=== PATIENT | male | born 1995 | race Caucasian/White ===

== ENCOUNTER → 2016-07-25 | Emergency (ER) | payer SELFPAY ==
[~2016-07-25] MED LIST: KETOROLAC TROMETHAMINE 30 MG/1 ML VIAL ONE; METOCLOPRAMIDE HCL INJECTION 10 MG/2 ML VIAL IVPB ONE; METOCLOPRAMIDE HCL INJECTION 10 MG/2 ML VIAL ONE; ONDANSETRON 4 MG/2 ML VIAL ONE; PANTOPRAZOLE SODIUM 200 ML IVPB ONE; PANTOPRAZOLE SODIUM 80 MG in SODIUM CHLORIDE 100 ML IVPB ONE; SODIUM CHLORIDE 0.9% 500 ML INFUS.BAG IV ONE
[2016-07-25 19:35] VITALS: TEMP 98; BMI 25.7
--- NOTE | 2016-07-25 20:00 | PDOC ---
History of Present Illness - History of Present Illness Initial Comments: 07/25/16 20:39 The patient is a year 20 year old male, with a significant past medical history of gastritis, who presents to the emergency department with abdominal pain, nausea, and vomiting for 3 days. He reports his abdominal pain is localized to the midsection with radiation to his epigastric region. He reports he has been unable to lay comfortable secondary to his pain. He reports numerous episodes of non-bloody emesis since the onset of symptoms. The patient states he has been feeling chills, but denies taking his temperature. He states he also feels sweaty. He states he has a history of gastritis secondary to skipping meals frequently for about a year. He reports a similar experience about 4 months ago and was seen at [facility], but denies being referred for GI outpatient care. He denies recent travel outside of the [facility]. He denies recent ingestion of river, stream or lord water. He denies contacts with similar symptoms. He denies blood or mucous noted in the stools. He denies chest pain, shortness of breath, headache and dizziness. He denies fever, diarrhea and constipation. He denies dysuria, frequency, urgency and hematuria. Allergies: NKDA Past surgical history: denies Family History: Gallstones (mother) Social history: denies toxic habits <Jessica Soto - Last Filed: 07/25/16 22:53> <Kandi Martinez - Last Filed: 07/25/16 23:55> - General Chief Complaint: Nausea/Vomiting Stated Complaint: NAUSEA/VOMITING Time Seen by Provider: 07/25/16 19:58 Past History <Jessica Soto - Last Filed: 07/25/16 22:53> - Past Medical History Other medical history: gastritis - Immunization History Immunization Up to Date: No - Psycho/Social/Smoking Cessation Hx Suicidal Ideation: No Smoking History: Never smoked <Kandi Martinez - Last Filed: 07/25/16 23:55> - Past Medical History Allergies/Adverse Reactions: Allergies Allergy/AdvReac Type Severity Reaction Status Date / Time No Known Allergies Allergy Verified 07/25/16 19:33 Home Medications: Ambulatory Orders NK [No Known Home Medication] 07/25/16 Review of Systems - Review of Systems Able to Perform ROS?: Yes Comments:: 07/25/16 20:39 GENERAL/CONSTITUTIONAL: (+) chills and diaphoresis. No fever. No weakness. HEAD, EYES, EARS, NOSE AND THROAT: No change in vision. No ear pain or discharge. No sore throat. CARDIOVASCULAR: No chest pain or shortness of breath. RESPIRATORY: No cough, wheezing, or hemoptysis. GASTROINTESTINAL: (+) nausea and vomiting, No diarrhea or constipation. GENITOURINARY: No dysuria, frequency, or change in urination. MUSCULOSKELETAL: No joint or muscle swelling or pain. No neck or back pain. SKIN: No rash NEUROLOGIC: No headache, vertigo, loss of consciousness, or change in strength/ sensation. ENDOCRINE: No increased thirst. No abnormal weight change. HEMATOLOGIC/LYMPHATIC: No anemia, easy bleeding, or history of blood clots. ALLERGIC/IMMUNOLOGIC: No hives or skin allergy. <Jessica Soto - Last Filed: 07/25/16 22:53> *Physical Exam - Vital Signs Last Vital Signs Temp Pulse Resp BP Pulse Ox 98 F 56 L 20 136/79 100 07/25/16 19:33 07/25/16 19:33 07/25/16 19:33 07/25/16 19:33 07/25/16 19:33 - Physical Exam Comments: 07/25/16 20:41 GENERAL: (+) uncomfortable appearing. Awake, alert, and fully oriented, in no acute distress HEAD: No signs of trauma EYES: PERRLA, EOMI, sclera anicteric, conjunctiva clear ENT: Auricles normal inspection, hearing grossly normal, nares patent, oropharynx clear without exudates. Moist mucosa NECK: Normal ROM, supple, no lymphadenopathy, JVD, or masses LUNGS: Breath sounds equal, clear to auscultation bilaterally. No wheezes, and no crackles HEART: Regular rate and rhythm, normal S1 and S2, no murmurs, rubs or gallops ABDOMEN: (+) mild discomfort with palpation of the right upper quadrant. Soft, normoactive bowel sounds. No guarding, no rebound. No masses EXTREMITIES: Normal range of motion, no edema. No clubbing or cyanosis. No cords, erythema, or tenderness NEUROLOGICAL: Cranial nerves II through XII grossly intact. Normal speech, normal gait SKIN: (+) Diaphoretic. Warm, normal turgor, no rashes or lesions noted. <ArielacanJessica - Last Filed: 07/25/16 22:53> - Vital Signs Last Vital Signs Temp Pulse Resp BP Pulse Ox 98 F 56 L 20 136/79 100 07/25/16 19:33 07/25/16 19:33 07/25/16 19:33 07/25/16 19:33 07/25/16 19:33 <Kandi Martinez - Last Filed: 07/25/16 23:55> ED Treatment Course - LABORATORY CBC & Chemistry Diagram: 07/25/16 20:52 07/25/16 20:52 - RADIOLOGY Radiograph Interpretation: 07/25/16 22:53 EXAM DATE AND TIME: 2016-07-25 21:35:50.0 EXAM: ULTRASOUND ABDOMEN INCOMPLETE was read by Marianne Gonzalez M.D. at 22:48 IMPRESSION: Unremarkable gallbladder, liver, right kidney and visualized aorta and pancreas. No biliary dilatation. <ArielaAni northanda - Last Filed: 07/25/16 22:53> - LABORATORY CBC & Chemistry Diagram: 07/25/16 20:52 07/25/16 20:52 <MartinezKandi - Last Filed: 07/25/16 23:55> Medical Decision Making - Medical Decision Making 07/25/16 21:19 Pt comes with epigastric pain; writhing around. However on exam he has no tenderness with palpation in all 4 quadrants, however her points to the Epigastric and RUQ as areas of pain. He and his girlfriend tell me that he has gastritis on a regular basis, but he has no specialist. He had a similar episode to this 4 months ago, and he didn't come to our ER. Went to [facility] in another [facility]. When I asked them what they told him after that admission, he replies,"They told me nothing" which I find hard to believe. Pt will be re worked up today. I will not offer him narcotic pain meds, as his exam is normal, and his HR is bradycardic/normal, and he has no fever. He is diaphoretic however, and he tells me that he has had nausea and vomiting x 3 day. When I ask him why he waited 3 days to come to the ER, he offers no explanation. Pt smokes weed, girlfriend tells me that it helps him with his epigastric pain.. 07/25/16 22:55 Patient Name: Jaime Aldana THIS IS A PRELIMINARY REPORT FROM IMAGING CLINIC ASSISTANT IMAGES: 47 EXAM DATE AND TIME: 2016-07-25 21:35:50.0 EXAM: ULTRASOUND ABDOMEN INCOMPLETE Unremarkable gallbladder, liver, right kidney and visualized aorta and pancreas. No biliary dilatation. THIS DOCUMENT HAS BEEN ELECTRONICALLY SIGNED 07/25/16 23:53 Pt has a normal ultrasound. He walked out after pulling out his IV; pt realized that I would not give him narcotics and he eloped. <Kandi Martinez - Last Filed: 07/25/16 23:55> *DC/Admit/Observation/Transfer - Attestations Scribe Attestion: 07/25/16 20:43 Documentation prepared by Jessica Soto, acting as medical i d sales for Kandi Martinez MD <Jessica Soto - Last Filed: 07/25/16 22:53> <Kandi Martinez - Last Filed: 07/25/16 23:55> Diagnosis at time of Disposition: Lower abdominal pain, unspecified, Upper abdominal pain, unspecified, Hyperbilirubinemia - Discharge Dispostion Disposition: ELOPED Condition at time of disposition: Stable
[2016-07-25 21:03] LABS: BASOPHIL 0.2 % (0-2.0); MCH 31.9 pg (25.7-33.7); MCHC 33.4 g/dl (32.0-35.9); MEAN CELL VOLUME 95.4 fl (80-96); NEUTROPHILS 82.8 % (42.8-82.8); PLATELET COUNT 210 K/MM3 (134-434); RDW 12.7 % (11.9-15.9); WHITE BLOOD COUNT 8.2 K/mm3 (4.0-10.0)
[2016-07-25 21:32] LABS: ALBUMIN 5.2 g/dl (3.4-5.0); AMYLASE 23 U/L (25-115); ANION GAP 11 (8-16); BILIRUBIN,TOTAL 1.4 mg/dL (0.2-1.0); CALCIUM 9.7 mg/dL (8.5-10.1); CO2 25 mmol/L (21-32); CREATININE 1.1 mg/dL (0.7-1.3); GLUCOSE,RANDOM 142 mg/dL (74-106); SGOT/AST 16 U/L (15-37); SGPT/ALT 20 U/L (12-78); TOT PROT 8.4 g/dl (6.4-8.2)
[2016-07-25 21:33] LABS: ALK PHOS 85 U/L (45-117)
[2016-07-25 22:47] LABS: URINE APPEARANCE CLEAR; URINE BILIRUBIN NEGATIVE (NEGATIVE); URINE BLOOD NEGATIVE (NEGATIVE); URINE COLOR STRAW; URINE GLUCOSE (UA) NEGATIVE (NEGATIVE); URINE KETONE 2+ (NEGATIVE); URINE LEUK ESTERASE NEGATIVE (NEGATIVE); URINE NITRITE NEGATIVE (NEGATIVE); URINE PROTEIN NEGATIVE (NEGATIVE); URINE UROBILINOGEN NEGATIVE E.U./dl (0.2-1.0)
[2016-07-25 22:57] LABS: URINE MARIJUANA THC POSITIVE ng/ml (CUTOFF=50)
[2016-07-26 00:57] VITALS: BP 125/68; PULSE 58
--- NOTE | 2016-07-26 10:17 | EKG ---
Test Reason : Blood Pressure : / mmHG Vent. Rate : 058 BPM Atrial Rate : 058 BPM P-R Int : 136 ms QRS Dur : 090 ms QT Int : 458 ms P-R-T Axes : 062 071 062 degrees QTc Int : 449 ms POOR DATA QUALITY, INTERPRETATION MAY BE ADVERSELY AFFECTED SINUS BRADYCARDIA WITH PREMATURE ATRIAL COMPLEXES OTHERWISE NORMAL ECG NO PREVIOUS ECGS AVAILABLE Confirmed by LUISITO CARSON MD ([id number]) on 07/26/2016 10:17:11 AM Referred By: Confirmed By:LUISITO CARSON MD
== END | disposition left against medical advice (07) ==
LOC: JER 19:28
PROC: 3E033GC Introduction of Other Therapeutic Substance into Peripheral Vein, Percutaneous Approach (ICD-10-PCS; principal; 2016-07-25)
DX: R10.13 Epigastric pain (principal); E80.6 Other disorders of bilirubin metabolism
CPT/HCPCS: 36415; 76705-TC; 80053; 80307; 81003; 82150; 83690; 85025; 93005; 93010; 99283-25

== ENCOUNTER 2016-10-09 18:34 | Observation (INO) | payer MEDICARE ==
[2016-10-09] MEDS ORDERED: morphine CARPU-JECT 4 MG/1 ML DISP.SYRIN IVPUSH ONE (19:13)
[2016-10-09] MEDS ORDERED: SODIUM CHLORIDE 1,000 ML IV STA (19:13)
[2016-10-09] MEDS ORDERED: ONDANSETRON 4 MG/2 ML VIAL IVPUSH ONE (19:13)
[2016-10-09] MEDS ORDERED: morphine CARPU-JECT 4 MG/1 ML DISP.SYRIN ONE (19:17)
[2016-10-09] MEDS ORDERED: ONDANSETRON 4 MG/2 ML VIAL ONE ×2 (19:18→19:42)
--- NOTE | 2016-10-09 19:35 | PDOC ---
History of Present Illness - General Chief Complaint: Pain Stated Complaint: ABD PAIN Time Seen by Provider: 10/09/16 19:08 History Source: Patient Exam Limitations: No Limitations - History of Present Illness Initial Comments: 10/09/16 19:36 CC: 3 week h/o of abdominal pain Patient is a 20 y.o. male with a PMH of multiple visits for abdominal pain ( with associated N/V) who presents to our facility today c/o of a 3 week h/o "sharp" and "stabbing" non-radiating diffuse abdominal pain 01/04 with 2-3 daily episodes of non-bloody, bilious vomiting. Patient was most recently evaluated at our facility on 06/2016 for similar complaints at which time an ultrasound was negative for any acute pathology. Patient's girlfriend @ bedside also notes that patient has had 2-3 episodes of vomiting today with bright red blood and she has noticed such blood in his vomit on prior occasion and further notes that this episodes occurred after food. Patient denies any associated chest pain, shortness of breath, diarrhea or constipation. 10/10/16 01:14 Timing/Duration: other (2-3 weeks) Severity: moderate Associated Symptoms: reports: nausea/vomiting Aspirin Received prior to arrival: Yes: no aspirin today Past History - Past Medical History Allergies/Adverse Reactions: Allergies Allergy/AdvReac Type Severity Reaction Status Date / Time No Known Allergies Allergy Verified 10/09/16 18:38 Home Medications: Ambulatory Orders NK [No Known Home Medication] 07/25/16 GI Disorders: Yes (GASTRITIS.) - Immunization History Immunization Up to Date: No - Psycho/Social/Smoking Cessation Hx Anxiety: No Suicidal Ideation: No Smoking History: Never smoked Hx Alcohol Use: No Drug/Substance Use Hx: Yes (marijuana.) Substance Use Type: Marijuana Review of Systems - Review of Systems Constitutional: Yes: Fever HEENTM: Yes: Other (No blurry vision, hearing loss, tinnitus or sore throat.) Respiratory: Yes: Cough, Hemoptysis (2-3 episodes of hemomtysis (bright red blood) today), Other (No shortness of breath at rest/with exertion) Cardiac (ROS): Yes: Other (No chest pain, palpitation, syncope or lightheadedness) ABD/GI: Yes: Nausea, Poor Appetite, Poor Fluid Intake, Vomiting, Abdominal cramping, Other (No diarrhea, constipation, bloody stools) Musculoskeletal: Yes: Other (No muscle pain, joint pain, muscle weakness) Integumentary: Yes: Other (No erythema, bruising, pallor, pruritus, rash ) Neurological: Yes: Other (No headaches, no numbness, no seizure, no tingling) Psychiatric: Yes: Other (No anxiety, depression, suicidal or homicidal ideation) All Other Systems: Reviewed and Negative *Physical Exam - Vital Signs Last Vital Signs Temp Pulse Resp BP Pulse Ox 99.9 F H 70 22 130/69 99 10/09/16 18:39 10/09/16 18:39 10/09/16 18:39 10/09/16 18:39 10/09/16 18:39 - Physical Exam General Appearance: Yes: Nourished, Appropriately Dressed HEENT: positive: EOMI, Other (B/L delayed puppilary repsonse) Neck: positive: Trachea midline, Supple Respiratory/Chest: positive: Lungs Clear, Normal Breath Sounds Cardiovascular: positive: Regular Rhythm, Regular Rate, S1, S2 Gastrointestinal/Abdominal: positive: Normal Bowel Sounds (Patient displays TTP in all 4 quadrants on superficial and deep palpation; (+) Anthony's sign; non- tympanic in all 4 quadrants), Tender, Soft, Tenderness Musculoskeletal: positive: Other ((-) CVA tenderness B/L) Integumentary: positive: Normal Color, Dry, Warm Neurologic: positive: histology teacher II-XII NML intact, Fully Oriented, Alert ED Treatment Course - LABORATORY CBC & Chemistry Diagram: 10/09/16 19:25 10/09/16 19:13 - Medications Given in the ED: ED Medications Discontinued Medications Generic Name Dose Route Start Last Admin Trade Name Ruperto PRN Reason Stop Dose Admin Morphine Sulfate 4 mg 10/09/16 19:13 10/09/16 19:21 Morphine Injection - IVPUSH 10/09/16 19:14 4 mg ONCE ONE Administration Ondansetron HCl 4 mg 10/09/16 19:13 10/09/16 19:22 Zofran Injection IVPUSH 10/09/16 19:14 4 mg ONCE ONE Administration Medical Decision Making - Medical Decision Making 10/09/16 19:58 Patient is a 20 y.o. male who presents to our ED today c/o of 3 week h/o intractable nausea/vomiting. CT Scan was unremarkable for any any liver, gallbladder or pancreatic abnormality and showed no urinary calculus or obstruction. As patient failed PO challenge, patient was admitted for observation with possible DDx of delayed gastric emptying vs. gastroparesis vs. PUD (less likely). *DC/Admit/Observation/Transfer Diagnosis at time of Disposition: Intractable nausea and vomiting Qualifiers: Vomiting type: unspecified Qualified Code(s): R11.2 - Nausea with vomiting, unspecified - Discharge Dispostion Condition at time of disposition: Good Admit: Yes - Attestations Physician Attestion: 10/09/16 23:20 I, Dr. Nichole Espinoza, attest that this document has been prepared under my direction and personally reviewed by me in its entirety. I further attest, that it accurately reflects all work, treatment, procedures and medical decision -making performed by me.
[2016-10-09] MEDS ORDERED: ONDANSETRON 4 MG/2 ML VIAL IVPB ONE (19:38)
[2016-10-09 19:56] LABS: BASOPHIL 0.2 % (0-2.0); MCH 31.9 pg (25.7-33.7); MCHC 33.2 g/dl (32.0-35.9); MEAN CELL VOLUME 96.2 fl (80-96); NEUTROPHILS 91.3 % (42.8-82.8); PLATELET COUNT 208 K/MM3 (134-434); RDW 13.2 % (11.9-15.9); WHITE BLOOD COUNT 10.1 K/mm3 (4.0-10.0)
--- NOTE | 2016-10-09 20:08 | PDOC ---
Attending Attestation - Resident Resident Name: Nichole Espinoza - ED Attending Attestation I have performed the following: I have examined & evaluated the patient, The case was reviewed & discussed with the resident, I agree w/resident's findings & plan, Exceptions are as noted - HPI HPI: 10/09/16 20:06 Agree with the resident's HPI as documented in the electronic medical record. - Physicial Exam PE: 10/09/16 20:07 Agree with the resident's physical examination as documented in the electronic medical record. - Medical Decision Making 10/09/16 20:07 This is a 20-year-old male with history of chronic abdominal pain who presents the emergency department with right-sided abdominal pain, bilious vomiting and low-grade temperature. Differential diagnosis includes but is not limited to: Pancreatitis, gastritis, peptic ulcer disease, gastroparesis/delayed gastric emptying, dehydration, electrolyte abnormality, toxic/metabolic derangement. Plan: 1. Labs 2. IV fluids for hydration 3. Supportive therapy with antiemetics and pain management 4. Observe and reevaluate 10/10/16 00:54 Addendum: the patient's labs were reviewed and are noted in the EMR. He was re -evaluated at this time as well. The patient had recurrent episodes of n/v as well as abdominal pain that required multiple doses of anti-emetics and narcotics. He had a CT scan of the abdomen/pelvis which was negative for acute intra-abdominal pathology. The plan is to admit the patient to observation for IVF hydration, serial abdominal exams and supportive treatment for pain and anti -emetics.
[2016-10-09 20:21] LABS: ALBUMIN 4.7 g/dl (3.4-5.0); ANION GAP 9 (8-16); CALCIUM 9.7 mg/dL (8.5-10.1); CO2 27 mmol/L (21-32)
[2016-10-09 20:25] LABS: BILIRUBIN,TOTAL 0.7 mg/dL (0.2-1.0); GLUCOSE,RANDOM 108 mg/dL (74-106); MAGNESIUM 2.1 mg/dL (1.8-2.4); PHOSPHOROUS 1.6 mg/dL (2.5-4.9); SGOT/AST 17 U/L (15-37); SGPT/ALT 21 U/L (12-78)
[2016-10-09 20:27] LABS: ALK PHOS 71 U/L (45-117); TOT PROT 7.4 g/dl (6.4-8.2)
[2016-10-09] MEDS ORDERED: METOCLOPRAMIDE HCL INJECTION 10 MG/2 ML VIAL IVPUSH ONE ×2 (21:21→22:20)
[2016-10-09] MEDS ORDERED: METOCLOPRAMIDE HCL INJECTION 10 MG/2 ML VIAL ONE ×2 (21:34→22:50)
[2016-10-09] MEDS ORDERED: FAMOTIDINE 20 MG/50 ML IVPB 50 ML IVPB ONE ×2 (22:32→22:50)
[2016-10-09] MEDS ORDERED: METOCLOPRAMIDE HCL INJECTION 10 MG/2 ML VIAL IVPB PRN (23:39)
--- NOTE | 2016-10-09 23:51 | HP ---
Admitting History and Physical - Admission Chief Complaint: n/v abdominal pain History of Present Illness: 20 yo m w hx of abdominal pain and nausea presents to the ER for evaluation of same. He reports intractable abdominal pain and nausea beginning today at 1AM. He reports 8/10 mid to lower achy-abdominal pain which radiates up and down the mid-line of his stomach. He reports the pain has been intermittent for ~ 2 years. He states it typically last 1-2 hours. He denies any aggravating factors. He reports taking MOM helps sometimes. He reports feeling like this 4months ago for which he came to the ER. He reports associated nausea and multiple episodes of vomiting up greenish and yellowish emesis. He reports having a normal BM today. He denies fevers, chills, diarrhea, chest pain, sob, heart palps, dizziness, syncope. pmh/psh- denies social- smokes marijuana 2-3 x weekly. denies alcohol famhx- denies ros neg except for HPI physical Gen- uncomfortable, alert Hent- at/nc, sameer, neck supple, trachea midline, no lymphadenopathy, no pharyngeal erythema resp- no cough, no rales, no ronchi, no wheeze, no cyanosis,lungs ctab cards- s1s2 heard, no rubs, no murmurs, no jvd, no leg edema, RRR skin- dry, intact, no rash GI- soft diffuse TTP, no guarding, BS normoactive, no tympany, no rigidity, no distention, no rebound Musk- moving all ext freely psych- cooperative, mild agitation neuro-cn 2- 12 grossly intact, speech clear, no facial droop, no seizures prob list n/v abdominal pain hypophospatemia ?polysub abuse disorder a/p- 20 yo m w hx of abdominal pain and nausea presents to the ER for evaluation of same placed in obs for eval of their emergent condition 1 n/v intractable, abdominal pain ? gastroenteritis, cannibus hyperemesis syndrome, appendicitis, mesenteric adenitis Ctap neg for appendicitis, free air, obstruction, adenopathy Given multiple rounds of Zofran and Reglan in ER Per ER resident patient failed Po challenge Non- specific abdomen pain on exam Lipase Ok CRP ok Abdominal checks Pain control Consider Gi consult Prn zofran, reglan, Mylanta FU Utox FU abdomen US NPO 2. hypophosphatemia replete as needed monitor labs 3. ?polysub abuse disorder +uTox - BZD, Marijuana, Opiates(but received morphine in er) Consult Akbar SCALES NPO, IVF DVT prophy SCD, OOB DIpso- obs for intractable n/v abdomen pain History Source: Patient Limitations to Obtaining History: No Limitations - Smoking History Smoking history: Never smoked - Alcohol/Substance Use Hx Alcohol Use: No Home Medications - Allergies Allergies/Adverse Reactions: Allergies Allergy/AdvReac Type Severity Reaction Status Date / Time No Known Allergies Allergy Verified 10/09/16 18:38 - Home Medications Home Medications: Ambulatory Orders NK [No Known Home Medication] 07/25/16 Physical Examination Vital Signs: Vital Signs Temperature 99.9 F H 10/09/16 18:39 Pulse Rate 70 10/09/16 18:39 Respiratory Rate 22 10/09/16 18:39 Blood Pressure 130/69 10/09/16 18:39 O2 Sat by Pulse Oximetry (%) 99 10/09/16 18:39 Labs: CBC, BMP 10/09/16 19:25 10/09/16 19:13 Visit type - Emergency Visit Emergency Visit: Yes ED Registration Date: 10/10/16 Care time: The patient presented to the Emergency Department on the above date and was hospitalized for further evaluation of their emergent condition. - New Patient This patient is new to me today: Yes Date on this admission: 10/10/16 - Critical Care Critical Care patient: No
[2016-10-09] MEDS: SODIUM CHLORIDE 1,000 ML IV SCH (23:56)
[2016-10-09] MEDS ORDERED: MAG HYDROX/AL HYDROX/SIMETH 30 ML UNIT-DOSE CUP PO PRN (23:59)
[2016-10-10 01:32] LABS: URINE APPEARANCE CLEAR; URINE BILIRUBIN NEGATIVE (NEGATIVE); URINE BLOOD NEGATIVE (NEGATIVE); URINE COLOR LTYELLOW; URINE GLUCOSE (UA) NEGATIVE (NEGATIVE); URINE KETONE TRACE (NEGATIVE); URINE LEUK ESTERASE NEGATIVE (NEGATIVE); URINE NITRITE NEGATIVE (NEGATIVE); URINE PROTEIN NEGATIVE (NEGATIVE); URINE UROBILINOGEN NEGATIVE mg/dL (0.2-1.0)
[2016-10-10 02:23] LABS: URINE MARIJUANA THC POSITIVE ng/ml (CUTOFF=50)
[2016-10-10] MEDS: SODIUM CHLORIDE 1,000 ML IV SCH ×2 (02:26→17:29)
[2016-10-10] MEDS: ACETAMINOPHEN 1000 MG/100 ML VIAL (NON FORMULARY) IVPB PRN ×2 (02:27→10:05)
[2016-10-10 03:05] VITALS: BMI 24.7
[2016-10-10] MEDS: KETOROLAC TROMETHAMINE 15 MG/ML VIAL IVPUSH PRN ×3 (06:16→17:30)
[2016-10-10] MEDS: POTASSIUM PHOSPHATE 10 MM in DEXTROSE 5%-WATER - 250 ML IVPB ONE ×2 (06:33→06:37)
[2016-10-10 07:30] LABS: BASOPHIL 0.2 % (0-2.0); MCH 32.9 pg (25.7-33.7); MCHC 34.2 g/dl (32.0-35.9); MEAN CELL VOLUME 96.3 fl (80-96); MEAN PLT VOLUME 7.6 fl (7.5-11.1); NEUTROPHILS 90.2 % (42.8-82.8); PLATELET COUNT 180 K/MM3 (134-434); RDW 13.1 % (11.9-15.9); WHITE BLOOD COUNT 10.5 K/mm3 (4.0-10.0)
[2016-10-10 07:53] LABS: ALBUMIN 4.3 g/dl (3.4-5.0); ANION GAP 9 (8-16); CO2 27 mmol/L (21-32); GLUCOSE,RANDOM 124 mg/dL (74-106); MAGNESIUM 2.2 mg/dL (1.8-2.4)
[2016-10-10 07:57] LABS: ALK PHOS 64 U/L (45-117); BILIRUBIN,TOTAL 1.2 mg/dL (0.2-1.0); CREATININE 0.9 mg/dL (0.7-1.3); PHOSPHOROUS 3.4 mg/dL (2.5-4.9); SGOT/AST 14 U/L (15-37); SGPT/ALT 20 U/L (12-78); TOT PROT 7.1 g/dl (6.4-8.2)
--- NOTE | 2016-10-10 12:16 | PN ---
Physical Exam: SUBJECTIVE: Patient seen and examined at the bedside. Patient states he has been battling chronic abdominal pain, mostly in the epigastric and RLQ region for over 2 years. It has gotten worse in the last few days and he has decided to come in when he became diaphoretic. He further states that his pain is relieved with marijuana which he smokes a few times per week. He states that in one year he has lost about 50lbs secondary to intractable vomiting, fear of eating secondary to abdominal pain. OBJECTIVE: Abdomen soft, non distended, no pain elicited on palpation of the abdomen Protonix ivpb ordered GI consulted for chronical abdominal pain, patient is willing to follow GI outpatient upon d/c Vital Signs Period Temp Pulse Resp BP Sys/Matt Pulse Ox Last 24 Hr 97.7 F-99.4 F 57-68 18-20 123-137/66-75 98-100 GENERAL: The patient is awake, alert, and fully oriented, in no acute distress. HEAD: Normal with no signs of trauma. EYES: PERRL, extraocular movements intact, sclera anicteric, conjunctiva clear. No ptosis. ENT: Ears normal, nares patent, oropharynx clear without exudates, moist mucous membranes. NECK: Trachea midline, full range of motion, supple. LUNGS: Breath sounds equal, clear to auscultation bilaterally HEART: Regular rate and rhythm ABDOMEN: Soft, nontender, nondistended, normoactive bowel sounds, no guarding, no rebound, no hepatosplenomegaly, no masses. NEUROLOGICAL: Normal speech, gait not observed. PSYCH: Normal mood, normal affect. SKIN: Warm, dry, normal turgor, no rashes or lesions noted Laboratory Results - last 24 hr 10/10/16 10/10/16 10/10/16 01:24 01:24 01:43 WBC RBC Hgb Hct MCV MCH MCHC RDW Plt Count MPV Neutrophils % Lymphocytes % Monocytes % Eosinophils % Basophils % Sodium Potassium Chloride Carbon Dioxide Anion Gap BUN Creatinine Creat Clearance w eGFR Random Glucose Calcium Phosphorus Magnesium Total Bilirubin AST ALT Alkaline Phosphatase C-Reactive Protein < 0.3 Total Protein Albumin Urine Color Ltyellow Urine Appearance Clear Urine pH 9.0 H Ur Specific [place] 1.015 Urine Protein Negative Urine Glucose (UA) Negative Urine Ketones Trace H Urine Blood Negative Urine Nitrite Negative Urine Bilirubin Negative Urine Urobilinogen Negative Ur Leukocyte Esterase Negative Opiates Screen Positive Methadone Screen Negative Barbiturate Screen Negative Phencyclidine Screen Negative Ur Amphetamines Screen Negative MDMA (Ecstasy) Screen Negative Benzodiazepines Screen Positive Cocaine Screen Negative U Marijuana (THC) Screen Positive 10/10/16 10/10/16 06:00 06:00 WBC 10.5 H RBC 4.54 Hgb 14.9 Hct 43.7 MCV 96.3 H MCH 32.9 MCHC 34.2 RDW 13.1 Plt Count 180 MPV 7.6 Neutrophils % 90.2 H Lymphocytes % 4.6 L Monocytes % 5.0 Eosinophils % 0.0 Basophils % 0.2 Sodium 141 Potassium 4.2 Chloride 105 Carbon Dioxide 27 Anion Gap 9 BUN 9 Creatinine 0.9 Creat Clearance w eGFR > 60 Random Glucose 124 H Calcium 9.0 Phosphorus 3.4 D Magnesium 2.2 Total Bilirubin 1.2 H D AST 14 L ALT 20 Alkaline Phosphatase 64 C-Reactive Protein Total Protein 7.1 Albumin 4.3 Urine Color Urine Appearance Urine pH Ur Specific [place] Urine Protein Urine Glucose (UA) Urine Ketones Urine Blood Urine Nitrite Urine Bilirubin Urine Urobilinogen Ur Leukocyte Esterase Opiates Screen Methadone Screen Barbiturate Screen Phencyclidine Screen Ur Amphetamines Screen MDMA (Ecstasy) Screen Benzodiazepines Screen Cocaine Screen U Marijuana (THC) Screen Active Medications Generic Name Dose Route Start Last Admin Trade Name Freq PRN Reason Stop Dose Admin Acetaminophen 1,000 mg 10/09/16 23:39 10/10/16 10:05 Ofirmev Injection - IVPB 10/10/16 17:40 1,000 mg Q6H PRN Administration FEVER OR PAIN Al Hydroxide/Mg Hydroxide 30 ml 10/09/16 23:59 Mylanta Oral Suspension - PO Q6H PRN DYSPEPSIA Sodium Chloride 1,000 mls @ 125 mls/hr 10/09/16 23:45 10/10/16 02:26 Normal Saline - IV 125 mls/hr ASDIR YAMILEX Administration Pantoprazole Sodium 40 mg/ 100 mls @ 200 mls/hr 10/10/16 12:15 Sodium Chloride IVPB DAILY YAMILEX Ketorolac Tromethamine 15 mg 10/10/16 05:51 10/10/16 06:16 Toradol Injection - IVPUSH 10/11/16 05:50 15 mg Q6H PRN Administration PAIN Metoclopramide HCl 10 mg 10/09/16 23:39 10/10/16 02:41 Reglan Injection - IVPB 10 mg Q6H PRN Administration NAUSEA AND/OR VOMITING ASSESSMENT/PLAN: Patient is a 20 year old male with a significant past medical history of chronic abdominal pain and nausea that has been chronic for 2 years but worsening in the last few days. He also admits to marijuana use almost daily which relieves his abdominal pain. He reports 8/10 mid to lower achy-abdominal pain which radiates up and down the mid-line of his stomach. He denies any aggravating factors but abdominal pain is associated with multiple episodes of vomiting and diarrhea. He reports having a normal BM today. He denies fevers, chills, diarrhea, chest pain, sob, heart palps, dizziness, syncope. Imaging: Abdominal ulstrasound: unremarkable CTAP: no evidence of acute process GI: Abdominal Pain/cramping - chronic Assessment/Plan: Rule out cyclical vomiting vs. IBS Reglan as needed, Protonix daily, Toradol q6 as needed Monitor intake and output GI following, notes reviewed High fiber diet, colace and PPI Endocrine: Hyperglycemia Assessment/Plan: hmga1c for a.m. Rule out gastritis F.E.N. Fluids: full liquids Electrolytes: monitor Nutrition: advance as per GI Prophylaxis: GI; Protonix DVT: young ambulatory patient Disposition. Full Code. Patient willing to follow GI as an outpatient when discharged. Visit type - Emergency Visit Emergency Visit: Yes ED Registration Date: 10/10/16 Care time: The patient presented to the Emergency Department on the above date and was hospitalized for further evaluation of their emergent condition. - New Patient This patient is new to me today: Yes Date on this admission: 10/10/16 - Critical Care Critical Care patient: No - Discharge Referral Referred to [facility] No
[2016-10-10] MEDS ORDERED: PANTOPRAZOLE SODIUM 40 MG VIAL ONE (12:28)
[2016-10-10] MEDS ORDERED: SODIUM CHLORIDE 100 ML IVPB ONE (12:29)
[2016-10-10] MEDS: PANTOPRAZOLE SODIUM 40 MG in SODIUM CHLORIDE 100 ML IVPB SCH (12:45)
--- NOTE | 2016-10-10 14:33 | CON.GI ---
Consult Consult Specialty:: GASTROENTEROLOGY Reason for Consultation:: 2 YEARS OF ABDOMINAL PAIN - History of Present Illness Chief Complaint: ABDOMINAL PAIN History of Present Illness: 20 YEAR OLD MALE WHO STATES THAT HE HAS HAD 2 YEARS OF ABDOMINAL PAIN ESPECIALLY AFTER EATING THAT HE STATES FEELS LIKE CRAMPING AND BURNING. HE STATES THAT SMOKING MARIJUANA RELIEVES THE PAIN AND HELPS HIM SLEEP. SHE SMOKE TWO JOINTS A DAY ; ONE IN THE MORNING AND ONE BEFORE BEDTIME. (I SMOKE AT NIGHT BECAUSE I CAN'T SLEEP IF I EAT FOOD AT NIGHT.) HE DOES CRAMP UP AND DOUBLE OVER AT TIMES AND HAS VOMITED BUT IT HAS BEEN NON BLOODY. HE COMPLAINS OF CONSTIPATION WITH HARD STOOL AND STRAINING. HE DENIES FEVER, HEADACHE, MELENA OR RECTAL BLEEDING. US AND CT SCAN DURING THIS ADMISSION ARE NORMAL. HE IS NPO AND HIS BLOOD DRAWS SHOW ELEVATED GLUCOSE. A TOX SCREEN IN THE ED IS POSITIVE FOR CANNIBUS, OPIATES AND BENZOS. HE STATES HE TOOK HIS GRANDMOTHER'S SCRIPT DRUGS FOR PAIN RELIEF. 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: Alzheimer's, CVA, Dementia, Migraine, Multiple Sclerosis, Peripheral Neuropathy, Parkinson's, Seizure, Syncope, TIA, Vertigo, Other Cardio/Vascular: No: AFIB, Aneurysm, Aortic Insufficiency, Aortic Stenosis, CAD , CHF, Deep Vein Thrombosis, HTN, Hyperlipdemia, [place], Mitral Insufficiency, Mitral Stenosis, Murmur, Pulmonary Hypertension, Other Pulmonary: No: Asthma, Bronchitis, Cancer, COPD, O2 Dependent, Pneumonia, Previously Intubated, Pulmonary Embolus, Pulmonary Fibrosis, Sleep Apnea, Other Gastrointestinal: Yes: Other ( HPI) Hepatobiliary: No: Cirrhosis, Cholelithiasis, Cholecystitis, Choledocholithiasis , Hepatitis A, Hepatitis B, Hepatitis C, Other Heme/Onc: No: Anemia, B12 Deficiency, Bleeding Disorder, Cancer, Current Chemotherapy, Current Radiation Therapy, Hemochromatosis, Hypercoaguable State, Myeloproliferative Synd, Sickle Cell Disease, Sickle Cell Trait, Thrombocytopenia, Other Infectious Disease: No: AIDS, C-Diff, Herpes Zoster, HIV, MRSA, STD's, Tuberculosis, VREF, Other Psych: No: Addictions, Anxiety, Bipolar, Depression, Panic, Psychosis, Schizophrenia, Other Musculoskeletal: No: Bursitis, Chronic low back pain, Hemiparesis, Hemiplegia, Osteoarthritis, Paraplegia, Other ENT: No: Allergic Rhinitis, Sinusitis, Other Endocrine: No: Yazan's Disease, [employer]'s Disease, Diabetes Insipidus, Diabetes Mellitus, Hyperparathyroidism, Hyperthyroidism, Hypothyroidism, Osteopenia, SIADH, Other Dermatology: No: Basal Cell, Cellulitis, Eczema, Melanoma, Psoriasis, Squamous Cell, Other - Past Surgical History Past Surgical History: No: None, AAA Repair, AICD, Amputation, Appendectomy, Arthrosocopy, AV Fistula/Graft, Bariatric Surgery, Breast Biopsy, Bypass, CABG, Carotid Endarterectomy, Cataract Removal, Cholecystectomy, Colectomy, Colonoscopy, Colostomy, Craniotomy, , Cystectomy, Hernia Repair, Hysterectomy, Ileal Conduit, Ileosotomy, Joint Replacement, Kidney Transplant, Laminectomy, Liver Transplant, Mastectomy, Nephrectomy, Oopherectomy, Orchiectomy, Permanent Pacemaker, Prostatectomy, Splenectomy, Stent, Thoracotomy , TURP, Tonsillectomy, Tubal Ligation, Upper Endoscopy, Valve Replacement, Vasectomy, Vein Stripping/Ligation - Alcohol/Substance Use Hx Alcohol Use: No - Smoking History Smoking history: Never smoked Home Medications - Allergies Allergies/Adverse Reactions: Allergies Allergy/AdvReac Type Severity Reaction Status Date / Time No Known Allergies Allergy Verified 10/09/16 18:38 - Home Medications Home Medications: Ambulatory Orders NK [No Known Home Medication] 07/25/16 Family Disease History - Family Disease History Family History: Denies Review of Systems - Review of Systems Constitutional: reports: Loss of Appetite Eyes: reports: No Symptoms HENT: reports: No Symptoms Neck: reports: No Symptoms Cardiovascular: reports: No Symptoms Respiratory: reports: No Symptoms Gastrointestinal: reports: Abdominal Pain, Constipation, Nausea, Vomiting Genitourinary: reports: No Symptoms Musculoskeletal: reports: No Symptoms Integumentary: reports: No Symptoms Neurological: reports: No Symptoms Endocrine: reports: No Symptoms Hematology/Lymphatic: reports: No Symptoms Physical Exam-GI Vital Signs: Vital Signs Temperature 97.7 F 10/10/16 09:15 Pulse Rate 58 L 10/10/16 09:15 Respiratory Rate 18 10/10/16 09:15 Blood Pressure 136/66 10/10/16 09:15 O2 Sat by Pulse Oximetry (%) 98 10/10/16 09:00 Constitutional: Yes: Well Nourished, Anxious Eyes: Yes: Conjunctiva Clear HENT: Yes: Normocephalic Neck: Yes: Supple Cardiovascular: Yes: Regular Rate and Rhythm Respiratory: Yes: Regular Gastrointestinal Inspection: Yes: WNL ...Auscultate: Yes: Normoactive Bowel Sounds ...Palpate: Yes: Soft Musculoskeletal: Yes: WNL Extremities: Yes: WNL Integumentary: Yes: Tattoos Neurological: Yes: Alert, Oriented Psychiatric: Yes: Alert Labs: CBC, BMP 10/10/16 06:00 10/10/16 06:00 Laboratory Tests 10/09/16 10/10/16 10/10/16 19:13 01:24 01:43 WBC RBC Hgb Hct MCV MCH MCHC RDW Plt Count MPV Neutrophils % Lymphocytes % Monocytes % Eosinophils % Basophils % Sodium Potassium Chloride Carbon Dioxide Anion Gap BUN Creatinine Creat Clearance w eGFR Random Glucose 108 H D Calcium 9.7 Phosphorus Magnesium Total Bilirubin AST ALT Alkaline Phosphatase C-Reactive Protein < 0.3 Total Protein 7.4 Albumin 4.7 Lipase 130 Opiates Screen Positive Benzodiazepines Screen Positive U Marijuana (THC) Screen Positive 10/10/16 10/10/16 06:00 06:00 WBC 10.5 H RBC 4.54 Hgb 14.9 Hct 43.7 MCV 96.3 H MCH 32.9 MCHC 34.2 RDW 13.1 Plt Count 180 MPV 7.6 Neutrophils % 90.2 H Lymphocytes % 4.6 L Monocytes % 5.0 Eosinophils % 0.0 Basophils % 0.2 Sodium 141 Potassium 4.2 Chloride 105 Carbon Dioxide 27 Anion Gap 9 BUN 9 Creatinine 0.9 Creat Clearance w eGFR > 60 Random Glucose 124 H Calcium 9.0 Phosphorus 3.4 D Magnesium 2.2 Total Bilirubin 1.2 H D AST 14 L ALT 20 Alkaline Phosphatase 64 C-Reactive Protein Total Protein 7.1 Albumin Lipase Opiates Screen Benzodiazepines Screen U Marijuana (THC) Screen Imaging - Results Cat Scan: Image Reviewed Ultrasound: Image Reviewed Problem List - Problems (1) Abdominal pain Assessment/Plan: I BELEIVE THIS COULD BE CYLCI VOMITING SYNDROME AND THE DAILY USE OF MARIJUAN NEEDS TO BE STOPPED. I HAVE DISCUSSED THIS WITH HIM. I DO, HOWEVER, NEED TO RULE OUT GASTROPARESIS, TREAT HIS CONSTIPATION AND CONSIDER IBS A DIAGNOSIS. I WILL ORDER A GASTRIC EMPTYING SCAN, ADVANCE HIS DIET TO HIGH FIBER AND USE COLACE, I WILL PLACE HIM ON COLACE AND CONTINUE THE PPi. WOULD NOT USE ANY NSAIDS OR NARCOTICS FOR PAIN. Code(s): R10.9 - UNSPECIFIED ABDOMINAL PAIN (2) Nausea & vomiting Code(s): R11.2 - NAUSEA WITH VOMITING, UNSPECIFIED (3) Cannabis abuse, daily use Code(s): F12.10 - CANNABIS ABUSE, UNCOMPLICATED
--- NOTE | 2016-10-10 19:46 | CONSULT ---
Consult Detox [facility] Reason for Current Admission/Consult: positive u/tox for cannabis , opioids and benzos in a pt with abdomianl pain and vomiting . - History History of Present Illness: 20 y/o m pt presents to ED with c/o abdominal pain and vomiting . Pt smokes marijuana on a daily basis since age 17. 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, CVA, Dementia, Migraine, Multiple Sclerosis, Peripheral Neuropathy, Parkinson's, Seizure, Syncope, TIA, Vertigo, Other Cardio/Vascular: No: AFIB, Aneurysm, Aortic Insufficiency, Aortic Stenosis, CAD , CHF, Deep Vein Thrombosis, HTN, Hyperlipdemia, [place], Mitral Insufficiency, Mitral Stenosis, Murmur, Pulmonary Hypertension, Other Pulmonary: No: Asthma, Bronchitis, Cancer, COPD, O2 Dependent, Pneumonia, Previously Intubated, Pulmonary Embolus, Pulmonary Fibrosis, Sleep Apnea, Other Gastrointestinal: Yes: Other ( HPI) Hepatobiliary: No: Cirrhosis, Cholelithiasis, Cholecystitis, Choledocholithiasis , Hepatitis A, Hepatitis B, Hepatitis C, Other Infectious Disease: No: AIDS, C-Diff, Herpes Zoster, HIV, MRSA, STD's, Tuberculosis, VREF, Other Psych: No: Addictions, Anxiety, Bipolar, Depression, Panic, Psychosis, Schizophrenia, Other Musculoskeletal: No: Bursitis, Chronic low back pain, Hemiparesis, Hemiplegia, Osteoarthritis, Paraplegia, Other ENT: No: Allergic Rhinitis, Sinusitis, Other Endocrine: No: Yazan's Disease, [place]'s Disease, Diabetes Insipidus, Diabetes Mellitus, Hyperparathyroidism, Hyperthyroidism, Hypothyroidism, Osteopenia, SIADH, Other Dermatology: No: Basal Cell, Cellulitis, Eczema, Melanoma, Psoriasis, Squamous Cell, Other - Past Surgical History Past Surgical History: No: None, AAA Repair, AICD, Amputation, Appendectomy, Arthrosocopy, AV Fistula/Graft, Bariatric Surgery, Breast Biopsy, Bypass, CABG, Carotid Endarterectomy, Cataract Removal, Cholecystectomy, Colectomy, Colonoscopy, Colostomy, Craniotomy, , Cystectomy, Hernia Repair, Hysterectomy, Ileal Conduit, Ileosotomy, Joint Replacement, Kidney Transplant, Laminectomy, Liver Transplant, Mastectomy, Nephrectomy, Oopherectomy, Orchiectomy, Permanent Pacemaker, Prostatectomy, Splenectomy, Stent, Thoracotomy , TURP, Tonsillectomy, Tubal Ligation, Upper Endoscopy, Valve Replacement, Vasectomy, Vein Stripping/Ligation - Significant Medical Findings: 20 y/o m pt aox3 in nad sitting up in bed appearing comfortable and cooperative . Vital Signs Temperature 97.4 F L 10/10/16 17:00 Pulse Rate 58 L 10/10/16 17:00 Respiratory Rate 20 10/10/16 17:00 Blood Pressure 124/62 10/10/16 17:00 O2 Sat by Pulse Oximetry (%) 100 10/10/16 18:00 no diaphoresis, no nausea, vomiting eyes - perrl, eom intact no tremor no piloerection COWS - Scale Resting Pulse: 0= FL 80 or Below Sweatin= No chills or Flushing Pupil Size: 0= Normal to Room Light Bone or Joint Aches: 0= None Runny Nose/ Eye Tearin= None GI Upset > 30mins: 1= Stomach Cramp Tremor Observation: 0= None Yawning Observation: 0= None Anxiety or Irritability: 0= None Goose Flesh Skin: 0=Smooth Skin COWS Score: 1 Assessment Plan - Diagnosis (1) Abdominal pain Status: Acute (2) Cannabis abuse, daily use Status: Chronic (3) Intractable nausea and vomiting Status: Chronic Qualifiers: Vomiting type: cyclical vomiting Qualified Code(s): G43.A1 - Cyclical vomiting, intractable Comment: 20 y/o m pt with daily marijuana use having vomiting and abdominal pain would consider CVS-cyclical vomiting syndrome in differential , which is seen in young males who smoke marijuana regularly . discontinuing marijuana use discussed with pt and he appears ameneable to stopping - he stated the GI also discussed d/c-ing marijuana use. - Plan Plan: d/c marijuana use out pt treatment program or in pt rehab. - Medication Detox Regimen/Protocol: Not Applicable
[2016-10-10] MEDS: KETOROLAC TROMETHAMINE 15 MG/ML VIAL IVPB PRN (23:30)
[2016-10-11] MEDS: METOCLOPRAMIDE HCL INJECTION 10 MG/2 ML VIAL IVPB PRN ×2 (00:57→06:41)
[2016-10-11] MEDS: SODIUM CHLORIDE 1,000 ML IV SCH ×2 (01:59→05:37)
[2016-10-11] MEDS ORDERED: ONDANSETRON 4 MG/2 ML VIAL IVPB ONE (04:25)
[2016-10-11] MEDS: KETOROLAC TROMETHAMINE 15 MG/ML VIAL IVPB PRN (05:39)
[2016-10-11] MEDS ORDERED: PANTOPRAZOLE SODIUM 40 MG VIAL ONE ×2 (08:42→08:46)
[2016-10-11] MEDS ORDERED: SODIUM CHLORIDE 100 ML IVPB ONE ×2 (08:42→08:46)
[2016-10-11 08:44] LABS: BASOPHIL 0.1 % (0-2.0); MCH 33.3 pg (25.7-33.7); MCHC 34.5 g/dl (32.0-35.9); MEAN CELL VOLUME 96.3 fl (80-96); MEAN PLT VOLUME 7.4 fl (7.5-11.1); NEUTROPHILS 78.8 % (42.8-82.8); PLATELET COUNT 173 K/MM3 (134-434); WHITE BLOOD COUNT 8.1 K/mm3 (4.0-10.0)
[2016-10-11] MEDS: PANTOPRAZOLE SODIUM 40 MG in SODIUM CHLORIDE 100 ML IVPB SCH (09:04)
[2016-10-11 09:06] LABS: ANION GAP 9 (8-16); CALCIUM 9.1 mg/dL (8.5-10.1); CO2 26 mmol/L (21-32); CREATININE 0.9 mg/dL (0.7-1.3); GLUCOSE,RANDOM 116 mg/dL (74-106); SGOT/AST 12 U/L (15-37); SGPT/ALT 22 U/L (12-78)
[2016-10-11 09:07] LABS: ALK PHOS 60 U/L (45-117); BILIRUBIN,TOTAL 1.2 mg/dL (0.2-1.0); TOT PROT 6.7 g/dl (6.4-8.2)
--- NOTE | 2016-10-11 10:35 | CONSULT ---
Consult Consult Specialty:: GI Reason for Consultation:: Abdominal pain for 2 years - History of Present Illness Chief Complaint: 2 day history of recurrent abdominal pain. History of Present Illness: 20 year old male presented at the ED 3 days ago with a 2 day history of recurrent abdominal pain. The pain is located at the right hypochondrial and supra pubic area and radiates to the epigastrium. The pain is burning/ colicky in nature, initially at a 9/10 on presentation, preventing him from sleeping. It is relieved by some change in position and hot showers. Currently 5/10 since he had a shower.There is associated nausea and vomiting of yellowish green contents, non bloody, had 5 episodes this morning, not high volume. There is no significant retching associated. There is occasional headaches, and diaphoresis , but no chills or fever. No constipation, but the patient passes loose stools, non mucoid or bloody. No associated jaundice. The patient has lost about 40lbs over the space of one year.No history of dysphagia, or odynophagia. No ulcers in mouth. No loss of appetite but has fear of eating because of nausea. The first incidence of the pain was 2 years ago, and the patient uses marijuana twice a day as his therapy to relieve the abdominal pain. 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, CVA, Dementia, Migraine, Multiple Sclerosis, Peripheral Neuropathy, Parkinson's, Seizure, Syncope, TIA, Vertigo, Other Cardio/Vascular: No: AFIB, Aneurysm, Aortic Insufficiency, Aortic Stenosis, CAD , CHF, Deep Vein Thrombosis, HTN, Hyperlipdemia, [place], Mitral Insufficiency, Mitral Stenosis, Murmur, Pulmonary Hypertension, Other Pulmonary: No: Asthma, Bronchitis, Cancer, COPD, O2 Dependent, Pneumonia, Previously Intubated, Pulmonary Embolus, Pulmonary Fibrosis, Sleep Apnea, Other Gastrointestinal: Yes: Other ( HPI) Hepatobiliary: No: Cirrhosis, Cholelithiasis, Cholecystitis, Choledocholithiasis , Hepatitis A, Hepatitis B, Hepatitis C, Other Infectious Disease: No: AIDS, C-Diff, Herpes Zoster, HIV, MRSA, STD's, Tuberculosis, VREF, Other Psych: No: Addictions, Anxiety, Bipolar, Depression, Panic, Psychosis, Schizophrenia, Other Musculoskeletal: No: Bursitis, Chronic low back pain, Hemiparesis, Hemiplegia, Osteoarthritis, Paraplegia, Other ENT: No: Allergic Rhinitis, Sinusitis, Other Endocrine: No: Yazan's Disease, [place]'s Disease, Diabetes Insipidus, Diabetes Mellitus, Hyperparathyroidism, Hyperthyroidism, Hypothyroidism, Osteopenia, SIADH, Other Dermatology: No: Basal Cell, Cellulitis, Eczema, Melanoma, Psoriasis, Squamous Cell, Other Additional Medical History: Has not seen a primary health provider in 3-4 years as he has no insurance. Last medical visit prior to this was to [facility] in [place] 3 months ago. - Past Surgical History Past Surgical History: No: None, AAA Repair, AICD, Amputation, Appendectomy, Arthrosocopy, AV Fistula/Graft, Bariatric Surgery, Breast Biopsy, Bypass, CABG, Carotid Endarterectomy, Cataract Removal, Cholecystectomy, Colectomy, Colonoscopy, Colostomy, Craniotomy, , Cystectomy, Hernia Repair, Hysterectomy, Ileal Conduit, Ileosotomy, Joint Replacement, Kidney Transplant, Laminectomy, Liver Transplant, Mastectomy, Nephrectomy, Oopherectomy, Orchiectomy, Permanent Pacemaker, Prostatectomy, Splenectomy, Stent, Thoracotomy , TURP, Tonsillectomy, Tubal Ligation, Upper Endoscopy, Valve Replacement, Vasectomy, Vein Stripping/Ligation - Alcohol/Substance Use Hx Alcohol Use: No History of Substance Use: reports: Marijuana (Uses marijuana twice a day, in the morning and evening), Prescription (Has used his grandmother's pain prescription meds in past). 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 Loss (Has lost 40lbs over 1 year). denies: Chills, Fever, Night Sweats Eyes: denies: Blurred Vision, Double Vision HENT: denies: Difficult Swallowing, Ear Discharge, Gingival Bleeding, Hearing Loss, Throat Pain Neck: denies: Pain on Movement, Stiffness, Tenderness Cardiovascular: denies: Chest Pain, Edema, Shortness of Breath Respiratory: denies: Cough, SOB Gastrointestinal: reports: Abdominal Pain, Other (As in HPI) Genitourinary: reports: Flank Pain (Mentioned some pain on his right side today) , Other (Straining to pass urine, sexually active with females only, last encouner 3 weeks ago. Has had 3 partners in past 6 months and does not always use protection.). denies: Burning, Discharge, Dysuria Musculoskeletal: denies: Back Pain, Joint Pain, Joint Swelling Integumentary: reports: Other (Tatoos on right arm) Neurological: denies: Change in LOC, Confusion, Headache, Syncope Hematology/Lymphatic: denies: Excessive Bleeding, Swollen Glands Physical Exam Vital Signs: Vital Signs Temperature 99.5 F 10/11/16 05:00 Pulse Rate 56 L 10/11/16 05:00 Respiratory Rate 18 10/11/16 05:00 Blood Pressure 131/61 10/11/16 05:00 O2 Sat by Pulse Oximetry (%) 100 10/10/16 20:09 CBC WBC 8.1 K/mm3 (4.0-10.0) 10/11/16 08:00 RBC 4.47 M/mm3 (4.00-5.60) 10/11/16 08:00 Hgb 14.9 GM/dL (11.7-16.9) 10/11/16 08:00 Hct 43.0 % (35.4-49) 10/11/16 08:00 MCV 96.3 fl (80-96) H 10/11/16 08:00 MCH 33.3 pg (25.7-33.7) 10/11/16 08:00 MCHC 34.5 g/dl (32.0-35.9) 10/11/16 08:00 RDW 13.0 % (11.9-15.9) 10/11/16 08:00 Plt Count 173 K/MM3 (134-434) 10/11/16 08:00 MPV 7.4 fl (7.5-11.1) L 10/11/16 08:00 Neutrophils % 78.8 % (42.8-82.8) 10/11/16 08:00 Lymphocytes % 13.7 % (8-40) D 10/11/16 08:00 Monocytes % 7.4 % (3.8-10.2) 10/11/16 08:00 Eosinophils % 0.0 % (0-4.5) 10/11/16 08:00 Basophils % 0.1 % (0-2.0) 10/11/16 08:00 Hepatic Panel Total Bilirubin 1.2 mg/dL (0.2-1.0) H 10/11/16 08:00 AST 12 U/L (15-37) L 10/11/16 08:00 ALT 22 U/L (12-78) 10/11/16 08:00 Alkaline Phosphatase 60 U/L (45-117) 10/11/16 08:00 Albumin 4.0 g/dl (3.4-5.0) 10/11/16 08:00 Current Medications Generic Name Dose Route Start Last Admin Trade Name Freq PRN Reason Stop Dose Admin Al Hydroxide/Mg Hydroxide 30 ml 10/09/16 23:59 10/11/16 04:44 Mylanta Oral Suspension - PO 30 ml Q6H PRN Administration DYSPEPSIA Docusate Sodium 100 mg 10/11/16 14:00 Colace - PO TID YAMILEX Sodium Chloride 1,000 mls @ 125 mls/hr 10/09/16 23:45 10/11/16 05:37 Normal Saline - IV 125 mls/hr ASDIR YAMILEX Administration Pantoprazole Sodium 40 mg/ 100 mls @ 200 mls/hr 10/10/16 12:15 10/11/16 09:04 Sodium Chloride IVPB 200 mls/hr DAILY YAMILEX Administration Metoclopramide HCl 10 mg 10/11/16 00:51 10/11/16 06:41 Reglan Injection - IVPB 10 mg Q6H PRN Administration NAUSEA AND/OR VOMITING Constitutional: Yes: Anxious. No: Pallor, Poor Hygeine Eyes: Yes: Sclera Icterus (Mild icterus) HENT: Yes: Atraumatic. No: Drooling, Epistaxis, Nasal Congestion, Pharyngeal Erythema, Thrush Neck: Yes: Supple. No: Rigid, Tenderness Cardiovascular: Yes: S1, S2 Respiratory: No: Cough, On BiPap, On Nasal O2, On Venti-Mask Gastrointestinal: Yes: Normal Bowel Sounds, Tenderness (tenderness over right hypogastrium, epigastrium, periumbilical area and suprapubic area. No rebound tenderness.). No: Ascites, Distention, Melena, Palpable Mass, Pulsatile Mass, Rectal Bleeding, Splenomegaly ...Rectal Exam: Yes: Sphincter Tone Normal, Other (clean rectum, some tenderness , no palpable masses, no stool on gloved finger). No: Mass Renal/: No: CVA Tenderness - Left, CVA Tenderness - Right, Vega Present, Hematuria Musculoskeletal: No: Joint Stiffness, Joint Swelling Edema: No Integumentary: Yes: Tattoos (R upper arm) Neurological: Yes: Alert Labs: CBC, BMP 10/11/16 08:00 10/11/16 08:00 Problem List - Problems (1) Abdominal pain Assessment/Plan: Chronic abdominal pain, RLQ, epigastric to suprapubic area, Associated n/v, in a cannabis user Likely cyclic vomiting syndrome secondary to cannabis use R/O cannabis hyperemesis syndrome Plan: 1. On antiemetics 2. Antimotility 3.Mylantra 4. For cessation of marijuana use - by substance use merchandising consultant Code(s): R10.9 - UNSPECIFIED ABDOMINAL PAIN (2) Cannabis abuse, daily use Assessment/Plan: Positive tox screen for marijuana and opiates Plan: For cessation of use Code(s): F12.10 - CANNABIS ABUSE, UNCOMPLICATED (3) Intractable nausea and vomiting Assessment/Plan: Continue: Antimotility antiemetics cannabis cessation Code(s): R11.2 - NAUSEA WITH VOMITING, UNSPECIFIED Qualifiers: Vomiting type: cyclical vomiting Qualified Code(s): G43.A1 - Cyclical vomiting, intractable Assessment/Plan Chronic abdominal pain and intractable nausea and vomiting in a 20 year old twice daily cannabis user, positive also for opiates Likely cyclic vomiting syndrome R/O cannabis hyperemesis syndrome R/O opiate withdrawal Plan: antiemetics antimotility antacids cannabis cessation Patient signed out AMA this afternoon. Visit type - Emergency Visit Emergency Visit: No - New Patient This patient is new to me today: No - Critical Care Critical Care patient: No
[2016-10-11 10:42] VITALS: BP 131/71; PULSE 59; TEMP 99.2
--- NOTE | 2016-10-11 13:19 | PN ---
Progress Note (short form) - Note Progress Note: Subjective: The patient was seen and examined at the bedside, he is dry heaving. He reports still having a burning pain in his stomach. He reports relief with Mylanta, hot packs, and warm shower. He also reports relief when he lays on his left side. Gastric emptying study scheduled for tomorrow. Current Medications Generic Name Dose Route Start Last Admin Trade Name Freq PRN Reason Stop Dose Admin Al Hydroxide/Mg Hydroxide 30 ml 10/09/16 23:59 10/11/16 04:44 Mylanta Oral Suspension - PO 30 ml Q6H PRN Administration DYSPEPSIA Sodium Chloride 1,000 mls @ 125 mls/hr 10/09/16 23:45 10/11/16 05:37 Normal Saline - IV 125 mls/hr ASDIR YAMILEX Administration Pantoprazole Sodium 40 mg/ 100 mls @ 200 mls/hr 10/10/16 12:15 10/11/16 09:04 Sodium Chloride IVPB 200 mls/hr DAILY YAMILEX Administration Metoclopramide HCl 10 mg 10/11/16 00:51 10/11/16 06:41 Reglan Injection - IVPB 10 mg Q6H PRN Administration NAUSEA AND/OR VOMITING Objective: Vital Signs Period Temp Pulse Resp BP Sys/Matt Pulse Ox Last 24 Hr 97.4 F-99.5 F 56-75 18-22 124-136/61-79 100-100 Physical Exam: Patient refused 2/2 nausea and dry heaving CBCD WBC 8.1 K/mm3 (4.0-10.0) 10/11/16 08:00 RBC 4.47 M/mm3 (4.00-5.60) 10/11/16 08:00 Hgb 14.9 GM/dL (11.7-16.9) 10/11/16 08:00 Hct 43.0 % (35.4-49) 10/11/16 08:00 MCV 96.3 fl (80-96) H 10/11/16 08:00 MCHC 34.5 g/dl (32.0-35.9) 10/11/16 08:00 RDW 13.0 % (11.9-15.9) 10/11/16 08:00 Plt Count 173 K/MM3 (134-434) 10/11/16 08:00 MPV 7.4 fl (7.5-11.1) L 10/11/16 08:00 CMP Sodium 141 mmol/L (136-145) 10/11/16 08:00 Potassium 3.9 mmol/L (3.5-5.1) 10/11/16 08:00 Chloride 106 mmol/L (98-107) 10/11/16 08:00 Carbon Dioxide 26 mmol/L (21-32) 10/11/16 08:00 Anion Gap 9 (8-16) 10/11/16 08:00 BUN 12 mg/dL (7-18) D 10/11/16 08:00 Creatinine 0.9 mg/dL (0.7-1.3) 10/11/16 08:00 Creat Clearance w eGFR > 60 (>60) 10/11/16 08:00 Random Glucose 116 mg/dL (74-106) H 10/11/16 08:00 Calcium 9.1 mg/dL (8.5-10.1) 10/11/16 08:00 Total Bilirubin 1.2 mg/dL (0.2-1.0) H 10/11/16 08:00 AST 12 U/L (15-37) L 10/11/16 08:00 ALT 22 U/L (12-78) 10/11/16 08:00 Alkaline Phosphatase 60 U/L (45-117) 10/11/16 08:00 Total Protein 6.7 g/dl (6.4-8.2) 10/11/16 08:00 Albumin 4.0 g/dl (3.4-5.0) 10/11/16 08:00 Assessment: This is a 20 year old male with hx of marijuana use (twice a day x2 years), who presented to the ED with intermittent nausea, vomiting, abdominal pain and burning x2 years. Plan: 1) GI: Nausea, vomiting, abdominal pain - Cyclic vomiting (2/2 marijuana use) vs. IBS vs. gastroparesis - For gastric emptying study tomorrow - Continue protonix - Mylanta prn - Colace for constipation - Diet per GI - Discussed with patient marijuana cessation, the patient is interested in rehab upon discharge - Appreciate GI consult 2) F/E/N: - Monitor electrolytes - Full liquid diet 3) Prophylaxis: - OOB ambulating - SCDs bilaterally 4) Dispo: - Once condition improves CODE STATUS: FULL CODE Visit type - Emergency Visit Emergency Visit: Yes ED Registration Date: 10/10/16 Care time: The patient presented to the Emergency Department on the above date and was hospitalized for further evaluation of their emergent condition. - New Patient This patient is new to me today: Yes Date on this admission: 10/11/16 - Critical Care Critical Care patient: No
--- NOTE | 2016-10-11 13:51 | DS ---
Physical Examination Vital Signs: Vital Signs Temperature 99.2 F 10/11/16 09:00 Pulse Rate 59 L 10/11/16 09:00 Respiratory Rate 22 10/11/16 09:00 Blood Pressure 131/71 10/11/16 09:00 O2 Sat by Pulse Oximetry (%) 100 10/10/16 20:09 Labs: CBC, BMP 10/11/16 08:00 10/11/16 08:00 Discharge Summary Reason For Visit: INTRACTABLE NAUSEA AND VOMITING Current Active Problems Abdominal pain (Acute) Nausea & vomiting (Acute) Cannabis abuse, daily use (Chronic) Intractable nausea and vomiting (Chronic) - Instructions Disposition: AGAINST MEDICAL ADVICE - Home Medications Comprehensive Discharge Medication List: Ambulatory Orders NK [No Known Home Medication] 07/25/16 - Discharge Referral Referred to [facility] Med P.C[facility] No
[2016-10-11] MEDS ORDERED: DOCUSATE SODIUM 100 MG CAPSULE (FP) PO SCH (14:00)
--- NOTE | 2016-10-11 15:43 | PN ---
Teaching Attending Note Name of Resident: Marjorie Espinosa ATTENDING PHYSICIAN STATEMENT Patient had been evaluated by Dr. Hines over the weekend at which time initial consultation was performed. He signed out AMA before I could revaluate the patient today.
== END 2016-10-11 14:18 | disposition left against medical advice (07) ==
LOC: JER 18:34 → JERBED 10-10 00:59 → J7W 10-10 02:03
PROVIDERS: ADMIT Internal Medicine; ATTEND Registered Nurse
PROC: 3E033NZ Introduction of Analgesics, Hypnotics, Sedatives into Peripheral Vein, Percutaneous Approach (ICD-10-PCS; principal; 2016-10-10)
PROC: 3E0337Z Introduction of Electrolytic and Water Balance Substance into Peripheral Vein, Percutaneous Approach (ICD-10-PCS; 2016-10-10)
PROC: 3E0333Z Introduction of Anti-inflammatory into Peripheral Vein, Percutaneous Approach (ICD-10-PCS; 2016-10-10)
PROC: 3E033GC Introduction of Other Therapeutic Substance into Peripheral Vein, Percutaneous Approach (ICD-10-PCS; 2016-10-10)
DX: G43.A1 Cyclical vomiting, in migraine, intractable (principal); R10.9 Unspecified abdominal pain; E83.39 Other disorders of phosphorus metabolism; F12.10 Cannabis abuse, uncomplicated
CPT/HCPCS: 36415; 74176-TC; 76700-TC; 80053; 80307; 81003; 83036; 83690; 83735; 84100; 85025; 86140; 96361; 96365; 96367; 96375; 96376; 99284-25; G0378

== ENCOUNTER 2017-10-24 13:53 | Observation (INO) | payer OTHER ==
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
[2017-10-24] MEDS ORDERED: SODIUM CHLORIDE 1,000 ML IV ONE (15:18)
[2017-10-24] MEDS ORDERED: ONDANSETRON 4 MG/2 ML VIAL IVPB ONE (15:18)
[2017-10-24] MEDS ORDERED: FAMOTIDINE 20 MG/50 ML IVPB 20 MG in PREMIX 50 IVPB ONE (15:18)
[2017-10-24] MEDS ORDERED: ONDANSETRON 4 MG/2 ML VIAL ONE ×2 (15:19→20:44)
[2017-10-24] MEDS ORDERED: FAMOTIDINE 20 MG/50 ML IVPB 20 MG/50 ML MG IVPB ONE (15:20)
[2017-10-24 15:45] LABS: BASO % 0.1 % (0-2.0); HEMATOCRIT 44.1 % (35.4-49); HEMOGLOBIN 15.2 GM/dL (11.7-16.9); LYMPH % 6.1 % (8-40); MCHC 34.5 g/dl (32.0-35.9); MEAN CELL VOLUME 95.7 fl (80-96); MEAN PLT VOLUME 7.6 fl (7.5-11.1); MONO % 2.7 % (3.8-10.2); NEUT % 91.1 % (42.8-82.8); PLATELET COUNT 198 K/MM3 (134-434); RBC 4.61 M/mm3 (4.00-5.60); RDW 12.5 % (11.9-15.9); WHITE BLOOD COUNT 7.8 K/mm3 (4.0-10.0)
[2017-10-24 15:56] LABS: ALBUMIN 4.7 g/dl (3.4-5.0); ALK PHOS 77 U/L (45-117); ANION GAP 9 (8-16); BILIRUBIN,TOTAL 0.9 mg/dL (0.2-1.0); BLOOD UREA NITROGEN 13 mg/dL (7-18); CALCIUM 9.7 mg/dL (8.5-10.1); CHLORIDE 108 mmol/L (98-107); CO2 27 mmol/L (21-32); GLUCOSE,RANDOM 142 mg/dL (74-106); LIPASE 121 U/L (73-393); POTASSIUM 4.2 mmol/L (3.5-5.1); SGOT/AST 19 U/L (15-37); SGPT/ALT 42 U/L (12-78); SODIUM 144 mmol/L (136-145); TOT PROT 7.8 g/dl (6.4-8.2)
[2017-10-24] MEDS ORDERED: morphine CARPU-JECT 4 MG/1 ML DISP.SYRIN IVPUSH ONE ×2 (16:16→17:54)
[2017-10-24] MEDS ORDERED: morphine SULFATE 4 MG/ML VIAL ONE ×2 (16:18→17:58)
[2017-10-24 18:40] LABS: PLATELET ESTIMATE ADEQUATE
[2017-10-24 20:08] LABS: URINE APPEARANCE CLEAR; URINE BILIRUBIN NEGATIVE (<2.0 mg/dL); URINE COLOR STRAW; URINE GLUCOSE (UA) NEGATIVE (NEGATIVE); URINE KETONE NEGATIVE (NEGATIVE); URINE LEUK ESTERASE NEGATIVE (NEGATIVE); URINE NITRITE NEGATIVE (NEGATIVE); URINE PROTEIN NEGATIVE (NEGATIVE); URINE UROBILINOGEN NEGATIVE mg/dL (0.2-1.0)
[2017-10-24] MEDS ORDERED: PANTOPRAZOLE SODIUM 40 MG VIAL IVPUSH ONE (20:22)
[2017-10-24] MEDS ORDERED: ONDANSETRON 4 MG/2 ML VIAL IVPUSH ONE (20:22)
--- NOTE | 2017-10-24 20:28 | PDOC ---
*Physical Exam - Vital Signs Last Vital Signs Temp Pulse Resp BP Pulse Ox 98.9 F 50 L 18 132/70 95 10/24/17 18:31 10/24/17 18:31 10/24/17 18:31 10/24/17 18:31 10/24/17 18:31 ED Treatment Course - LABORATORY CBC & Chemistry Diagram: 10/24/17 15:26 10/24/17 15:26 - ADDITIONAL ORDERS Additional order review: Laboratory Results 10/24/17 10/24/17 20:00 15:26 Sodium 144 Potassium 4.2 Chloride 108 H Carbon Dioxide 27 Anion Gap 9 BUN 13 Creatinine 1.0 Creat Clearance w eGFR > 60 Random Glucose 142 H D Calcium 9.7 Total Bilirubin 0.9 AST 19 D ALT 42 D Alkaline Phosphatase 77 Total Protein 7.8 Albumin 4.7 Lipase 121 Urine Color Straw Urine Appearance Clear Urine pH 8.0 Ur Specific [place] 1.011 Urine Protein Negative Urine Glucose (UA) Negative Urine Ketones Negative Urine Blood Negative Urine Nitrite Negative Urine Bilirubin Negative Urine Urobilinogen Negative Ur Leukocyte Esterase Negative 10/24/17 15:26 RBC 4.61 MCV 95.7 MCHC 34.5 RDW 12.5 MPV 7.6 Neutrophils % 91.1 H Lymphocytes % 6.1 L D Monocytes % 2.7 L Eosinophils % 0.0 Basophils % 0.1 - Medications Given in the ED: ED Medications Discontinued Medications Generic Name Dose Route Start Last Admin Trade Name Freq PRN Reason Stop Dose Admin Famotidine/Sodium Chloride 20 50 mls @ 100 mls/hr 10/24/17 15:18 10/24/17 15: 23 mg/ Miscellaneous IVPB 10/24/17 15:47 100 mls/hr ONCE ONE Administration Sodium Chloride 1,000 mls @ 1,000 mls/hr 10/24/17 15:18 10/24/17 15:23 Normal Saline - IV 10/24/17 16:17 1,000 mls/hr .Q1H ONE Administration Morphine Sulfate 4 mg 10/24/17 16:16 10/24/17 16:28 Morphine Injection - IVPUSH 10/24/17 16:17 4 mg ONCE ONE Administration Morphine Sulfate 4 mg 10/24/17 17:54 10/24/17 17:59 Morphine Injection - IVPUSH 10/24/17 17:55 4 mg ONCE ONE Administration Ondansetron HCl 4 mg 10/24/17 15:18 10/24/17 15:23 Zofran Injection IVPB 10/24/17 15:19 4 mg ONCE ONE Administration Medical Decision Making - Medical Decision Making 10/24/17 20:27 Ultrasound is negative for any signs of choledocholithiasis or cholecystitis. However, the patient still complains of nausea and severe epigastric pain. Discussed the case with Dr Aguiar and it was decided to admit the patient to [facility] OBS *DC/Admit/Observation/Transfer Diagnosis at time of Disposition: Intractable nausea and vomiting Qualifiers: Vomiting type: unspecified Qualified Code(s): R11.2 - Nausea with vomiting, unspecified - Discharge Dispostion Decision to Admit order: Yes - Referrals - Patient Instructions - Post Discharge Activity
[2017-10-24] MEDS ORDERED: PANTOPRAZOLE SODIUM 40 MG/100 ML BAG IVPB ONE (20:44)
[2017-10-24] MEDS ORDERED: METOCLOPRAMIDE HCL INJECTION 10 MG/2 ML VIAL ONE (21:12)
[2017-10-24] MEDS ORDERED: METOCLOPRAMIDE HCL INJECTION 10 MG/2 ML VIAL IVPUSH ONE (21:21)
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
[2017-10-24] MEDS: MORPHINE SULFATE 2 MG/ML VIAL IVPUSH PRN (22:50)
[2017-10-24] MEDS ORDERED: ONDANSETRON 4 MG/2 ML VIAL IVPB PRN (22:52)
[2017-10-24] MEDS ORDERED: MORPHINE SULFATE 2 MG/ML VIAL ONE (22:57)
[2017-10-25 01:45] VITALS: BMI 24.0
[2017-10-25] MEDS: MORPHINE SULFATE 2 MG/ML VIAL IVPUSH PRN ×2 (02:14→08:05)
[2017-10-25 07:33] LABS: BASO % 0.1 % (0-2.0); HEMATOCRIT 38.3 % (35.4-49); HEMOGLOBIN 13.6 GM/dL (11.7-16.9); LYMPH % 12.2 % (8-40); MCH 33.9 pg (25.7-33.7); MCHC 35.5 g/dl (32.0-35.9); MEAN CELL VOLUME 95.4 fl (80-96); MEAN PLT VOLUME 7.7 fl (7.5-11.1); MONO % 6.4 % (3.8-10.2); NEUT % 81.3 % (42.8-82.8); PLATELET COUNT 168 K/MM3 (134-434); RBC 4.02 M/mm3 (4.00-5.60); RDW 12.5 % (11.9-15.9); WHITE BLOOD COUNT 9.8 K/mm3 (4.0-10.0)
[2017-10-25 08:09] LABS: CHLORIDE 109 mmol/L (98-107); SODIUM 144 mmol/L (136-145)
[2017-10-25 08:27] LABS: ALBUMIN 3.9 g/dl (3.4-5.0); ALK PHOS 64 U/L (45-117); ANION GAP 10 (8-16); BILIRUBIN,TOTAL 1.1 mg/dL (0.2-1.0); BLOOD UREA NITROGEN 12 mg/dL (7-18); CALCIUM 9.1 mg/dL (8.5-10.1); CO2 25 mmol/L (21-32); CREATININE 0.9 mg/dL (0.7-1.3); GLUCOSE,RANDOM 109 mg/dL (74-106); SGOT/AST 15 U/L (15-37); SGPT/ALT 35 U/L (12-78); TOT PROT 6.6 g/dl (6.4-8.2)
[2017-10-25] MEDS ORDERED: PANTOPRAZOLE SODIUM 40 MG VIAL IVPUSH SCH (10:00)
[2017-10-25 12:21] VITALS: BP 106/40; PULSE 57; TEMP 98.7
--- NOTE | 2017-10-25 13:11 | DS ---
Physical Examination Vital Signs: Vital Signs Temperature 98.7 F 10/25/17 09:00 Pulse Rate 57 L 10/25/17 09:00 Respiratory Rate 16 10/25/17 09:00 Blood Pressure 106/40 10/25/17 09:00 O2 Sat by Pulse Oximetry (%) 99 10/25/17 00:54 Labs: CBC, BMP 10/25/17 06:15 10/25/17 06:15 Discharge Summary Reason For Visit: UPPER ABD PAIN, INTRACTABLE VOMITING W/ NAUSEA Current Active Problems Intractable nausea and vomiting (Chronic) - Instructions Disposition: ELOPED - Home Medications Comprehensive Discharge Medication List: Ambulatory Orders NK [No Known Home Medication] 07/25/16 pt eloped without eating regular diet
--- NOTE | 2017-10-25 13:46 | PN ---
Progress Note (short form) - Note Progress Note: Covering Dr. El. Came to see patient but patient eloped prior to evaluation
== END 2017-10-25 14:18 | disposition left against medical advice (07) ==
LOC: JER 13:53 → JERBED 20:29 → J7W 10-25 01:19
PROVIDERS: ADMIT Internal Medicine; ATTEND Internal Medicine
PROC: 3E033NZ Introduction of Analgesics, Hypnotics, Sedatives into Peripheral Vein, Percutaneous Approach (ICD-10-PCS; principal; 2017-10-24)
PROC: 3E033GC Introduction of Other Therapeutic Substance into Peripheral Vein, Percutaneous Approach (ICD-10-PCS; 2017-10-24)
PROC: 3E0337Z Introduction of Electrolytic and Water Balance Substance into Peripheral Vein, Percutaneous Approach (ICD-10-PCS; 2017-10-24)
DX: R11.2 Nausea with vomiting, unspecified (principal); R10.9 Unspecified abdominal pain
CPT/HCPCS: 36415; 76705-TC; 80053; 81003; 83690; 85025; 96365; 96375; 96376; 99285-25; G0378; J7030

== ENCOUNTER 2018-03-18 23:59 | Emergency (ER) | payer OTHER ==
[2018-03-19 00:32] VITALS: BP 112/51; PULSE 73; TEMP 98.1; BMI 23.3
--- NOTE | 2018-03-19 00:38 | PDOC ---
Attending Attestation - HPI HPI: 03/19/18 01:38 The patient is a 22 year old male with no past medical history here today for evaluation of dysuria. The patient reports associated testicular pain and reports that he has had clear penile discharge in his boxers. Patient denies headache, lightheadedness. Denies fever, chills. Denies chest pain, shortness of breath. Denies nausea, vomiting, diarrhea, abdominal pain. Allergies: NKA PCP: Laura Cline <Octavio Schneider - Last Filed: 03/19/18 01:38> - Physicial Exam PE: 03/19/18 22:01 Agree with resident exam. PAtient is alert and ambulatory and in no acute distress. - Medical Decision Making 03/19/18 22:01 Pt presents to the ED complaining of dysuria after exposure to chylamida. Denies testicular pain. Will treat with zithromax and ceftriaxone and discharge home. PAteint advised to call in two days for results of GC testing. <Raven Galindo - Last Filed: 03/19/18 22:13>
--- NOTE | 2018-03-19 01:45 | PDOC ---
History of Present Illness - General Chief Complaint: Urinary Problem Stated Complaint: SICK Time Seen by Provider: 03/19/18 00:38 History Source: Patient Exam Limitations: No Limitations - History of Present Illness Initial Comments: 03/19/18 01:53 Pt. is a 22 y.o. M w/ PMHx. of gastritis, presents to the ED with urethral discharge, dysuria, left flank pain and suprapubic tenderness. Pt. states that his partner notified him that he was exposed to chlamydia . His last sexual encounter with that partner was 2-3 days ago and he did not use barrier protection. Pt. denies any fever, chills, nausea, vomiting, diarrhea or hematuria. Pt. states that he last had an STD panel 1 week ago which was negative. Pt. denies ever having STDs in the past. Pt. requesting HIV test as well. UA/UCx, HIV 4th Gen, and chlamydia/gonorrhea ordered. Pt. given 125mg Ceftriaxone and 1gm Azithromycin PO. Timing/Duration: changing over time Severity: mild Associated Symptoms: denies: chest pain, cough, fever/chills, headaches, nausea/ vomiting, rash, shortness of breath, syncope, weakness Aspirin Received prior to arrival: Yes: no aspirin today Past History - Travel Traveled outside of the country in the last 30 days: No Close contact w/someone who was outside of country & ill: No - Past Medical History Allergies/Adverse Reactions: Allergies Allergy/AdvReac Type Severity Reaction Status Date / Time No Known Allergies Allergy Verified 10/24/17 15:44 Home Medications: Ambulatory Orders NK [No Known Home Medication] 07/25/16 Anemia: No Asthma: No Cancer: No Cardiac Disorders: No Hx Myocardial Infarction: No CVA: No COPD: No CHF: No DVT: No Dementia: No Diabetes: No GI Disorders: Yes (GASTRITIS.) Disorders: No HTN: No Hypercholesterolemia: No Liver Disease: No Seizures: No Thyroid Disease: No - Surgical History Abdominal Surgery: No Appendectomy: No Cardiac Surgery: No Cholecystectomy: No Lung Surgery: No Neurologic Surgery: No Orthopedic Surgery: No - Immunization History Immunization Up to Date: No - Suicide/Smoking/Psychosocial Hx Smoking History: Never smoked Have you smoked in the past 12 months: No Information on smoking cessation initiated: No Hx Alcohol Use: No Drug/Substance Use Hx: No Substance Use Type: Marijuana Hx Substance Use Treatment: No Review of Systems - Review of Systems Able to Perform ROS?: Yes Is the patient limited Trinidadian proficient: No Constitutional: No: Chills, Diaphoresis, Fever, Weakness HEENTM: No: Blurred Vision, Recent change in vision, Difficulty Swallowing Respiratory: No: Orthopnea, Shortness of Breath, SOB with Exertion, SOB at Rest , Wheezing Cardiac (ROS): No: Chest Pain, Edema, Irregular Heart Rate, Lightheadedness, Palpitations ABD/GI: Yes: Abdominal Distended. No: Constipated, Diarrhea, Difficulty Swallowing, Nausea, Poor Fluid Intake : Yes: Burning, Dysuria, Discharge, Flank Pain, Pain, Urgency, Testicular Pain. No: Hematuria, Incontinence Musculoskeletal: Yes: Back Pain Integumentary: No: Bruising, Dryness, Erythema, Lesions Neurological: No: Headache, Numbness, Paresthesia, Seizure, Tingling, Tremors, Weakness, Dizziness *Physical Exam - Vital Signs Last Vital Signs Temp Pulse Resp BP Pulse Ox 98.1 F 73 17 112/51 L 100 03/19/18 00:00 03/19/18 00:00 03/19/18 00:00 03/19/18 00:00 03/19/18 00:00 - Physical Exam General Appearance: Yes: Appropriately Dressed, Apparent Distress, Mild Distress HEENT: positive: Normal ENT Inspection, Normal Voice, Symmetrical Neck: positive: Supple Respiratory/Chest: positive: Chest Tender, Lungs Clear, Normal Breath Sounds. negative: Accessory Muscle Use, Crackles, Rales, Rhonchi, Wheezing Cardiovascular: positive: Regular Rhythm, Regular Rate, S1, S2. negative: Edema , JVD, Murmur Vascular Pulses: Dorsalis-Pedis (R): 2+, Doralis-Pedis (L): 2+ Gastrointestinal/Abdominal: positive: Normal Bowel Sounds, Tender (suprapubic tenderness), Flat, Tenderness. negative: Guarding Male Genitalia: positive: discharge, testicular tenderness. negative: hematuria Rectal Exam: positive: deferred Musculoskeletal: positive: CVA Tenderness, CVA Tenderness (L). negative: Vertebral Tenderness Extremity: positive: Normal Capillary Refill, Normal Inspection. negative: Tender, Pedal Edema, Swelling, Calf Tenderness, Erythema Integumentary: positive: Normal Color, Dry, Warm Neurologic: positive: Fully Oriented, Alert, Normal Mood/Affect Moderate Sedation - Procedure Monitoring Vital Signs: Procedure Monitoring Vital Signs Temperature 98.1 F 03/19/18 00:00 Pulse Rate 73 03/19/18 00:00 Respiratory Rate 17 03/19/18 00:00 Blood Pressure 112/51 L 03/19/18 00:00 O2 Sat by Pulse Oximetry (%) 100 03/19/18 00:00 *DC/Admit/Observation/Transfer Diagnosis at time of Disposition: Dysuria, Polyuria, Pyelonephritis - Discharge Dispostion Disposition: HOME Condition at time of disposition: Stable - Referrals Schedule a call back: Please call with results of STD panel Referrals: Laura Cline [Primary Care Provider] - - Patient Instructions Printed Discharge Instructions: DI for Urinary Tract Infection (UTI) Additional Instructions: You came in for painful urination and left back pain. We evaluated you and found that you have an urinary tract infection. We have started you on for Please take as prescribed and to completion Please follow up with your Primary Care Physician within 1 week. Please return to the ER if you are experiencing fever, chills, worsening back pain, blood in the urine or any other concerning symptoms. - Post Discharge Activity
[2018-03-19] MEDS ORDERED: AZITHROMYCIN IVPB 1,000 MG in DEXTROSE 5%-WATER - 250 ML IVPB ONE (01:47)
[2018-03-19] MEDS ORDERED: AZITHROMYCIN 500 MG TABLET PO ONE ×2 (02:00→02:15)
[2018-03-19] MEDS ORDERED: AZITHROMYCIN 500 MG TABLET ONE (02:13)
[2018-03-19 02:22] LABS: URINE APPEARANCE CLEAR; URINE BILIRUBIN NEGATIVE (<2.0 mg/dL); URINE COLOR YELLOW; URINE GLUCOSE (UA) NEGATIVE (NEGATIVE); URINE KETONE NEGATIVE (NEGATIVE); URINE LEUK ESTERASE 1+ (NEGATIVE); URINE NITRITE NEGATIVE (NEGATIVE); URINE PROTEIN NEGATIVE (NEGATIVE)
[2018-03-19 02:26] LABS: EPI CELLS RARE /HPF (FEW); URINE BACTERIA FEW /hpf (NONE SEEN); URINE MUCUS MODERATE
== END 2018-03-19 03:39 | disposition home or self-care (01) ==
LOC: JER 23:59
DX: Z11.4 Encounter for screening for human immunodeficiency virus [HIV] (principal); R30.0 Dysuria; R35.8 Other polyuria; N12 Tubulo-interstitial nephritis, not specified as acute or chronic
CPT/HCPCS: 36415; 81003; 81015; 87086; 87389; 87491; 87591; 87661; 99282-25

== ENCOUNTER 2018-07-06 17:41 | Emergency (ER) | payer OTHER ==
[2018-07-06 17:59] VITALS: BP 121/69; PULSE 72; TEMP 97.9; BMI 23.8
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
[2018-07-06] MEDS ORDERED: DIPHTH,PERTUSS(ACELL),TET 0.5 ML DISP.SYRIN IM ONE ×2 (19:47→19:50)
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
== END 2018-07-06 19:55 | disposition home or self-care (01) ==
LOC: JERFT 17:41
PROC: 3E0234Z Introduction of Serum, Toxoid and Vaccine into Muscle, Percutaneous Approach (ICD-10-PCS; principal; 2018-07-06)
PROC: 2W25X4Z Dressing of Back using Bandage (ICD-10-PCS; 2018-07-06)
DX: T21.14XA Burn of first degree of lower back, initial encounter (principal); X12.XXXA Contact with other hot fluids, initial encounter; Y93.G3 Activity, cooking and baking; Y92.010 Kitchen of single-family (private) house as the place of occurrence of the external cause; Y99.8 Other external cause status
CPT/HCPCS: 90715; 99281-25

== ENCOUNTER 2018-07-29 15:28 | Emergency (ER) | payer OTHER ==
[2018-07-29 16:09] VITALS: TEMP 97.2; BMI 23.8
--- NOTE | 2018-07-29 16:09 | PDOC ---
History of Present Illness - General Chief Complaint: Nausea/Vomiting Stated Complaint: VOMITTING, ABDOMINAL PAIN - History of Present Illness Initial Comments: The pt is a 22M w/ a history of THC and opioid use who presents for 1 day of NBNB vomiting, epigastric/RUQ abdominal pain, and sweating. Reports last THC use was 2 days ago and last opioid use may have been anywhere from 2 days to 2 weeks ago. Denies fevers, MELGAR, vision changes, chest pain, SOB, or changes in sensation. 07/29/18 16:51 Past History - Past Medical History Allergies/Adverse Reactions: Allergies Allergy/AdvReac Type Severity Reaction Status Date / Time No Known Allergies Allergy Verified 03/19/18 03:17 Home Medications: Ambulatory Orders Azithromycin [Zithromax] 1,000 mg PO DAILY #2 tablet 03/27/18 Anemia: No Asthma: No Cancer: No Cardiac Disorders: No CVA: No COPD: No CHF: No DVT: No Dementia: No Diabetes: No GI Disorders: Yes (GASTRITIS.) Disorders: No HTN: No Hypercholesterolemia: No Liver Disease: No Seizures: No Thyroid Disease: No - Surgical History Abdominal Surgery: No Appendectomy: No Cardiac Surgery: No Cholecystectomy: No Lung Surgery: No Neurologic Surgery: No Orthopedic Surgery: No - Immunization History Immunization Up to Date: No - Suicide/Smoking/Psychosocial Hx Smoking History: Never smoked Have you smoked in the past 12 months: No Information on smoking cessation initiated: No Hx Alcohol Use: No Drug/Substance Use Hx: No Substance Use Type: Marijuana Hx Substance Use Treatment: No Review of Systems - Review of Systems Able to Perform ROS?: Yes Comments:: GENERAL/CONSTITUTIONAL: No fever or chills. No weakness._ HEAD, EYES, EARS, NOSE AND THROAT: No change in vision. No ear pain or discharge. No sore throat._ CARDIOVASCULAR: No chest pain or shortness of breath_ RESPIRATORY: Denies cough, hemoptysis_ GASTROINTESTINAL: No nausea, vomiting, diarrhea or constipation._ GENITOURINARY: No dysuria, frequency, or change in urination._ MUSCULOSKELETAL: No joint or muscle swelling or pain. No neck or back pain._ SKIN: No rash_ NEUROLOGIC: No headache, vertigo, loss of consciousness, or change in strength/ sensation._ ENDOCRINE: No increased thirst. No abnormal weight change_ HEMATOLOGIC/LYMPHATIC: No anemia, easy bleeding, or history of blood clots._ ALLERGIC/IMMUNOLOGIC: No hives or skin allergy._ 07/29/18 16:08 Is the patient limited Nigerian proficient: No *Physical Exam - Vital Signs Last Vital Signs Temp Pulse Resp BP Pulse Ox 97.2 F L 83 20 130/74 100 07/29/18 15:47 07/29/18 15:47 07/29/18 15:47 07/29/18 15:47 07/29/18 15:47 - Physical Exam Comments: GENERAL: Awake, alert, and oriented to person/place/time HEAD: No signs of trauma, normocephalic, atraumatic EYES: PERRLA, EOMI, sclera anicteric, conjunctiva clear ENT: Hearing grossly normal, nares patent, oropharynx clear without exudates. Moist mucosa LUNGS: No distress, speaks full sentences, clear to auscultation bilaterally HEART: Regular rate and rhythm, normal S1 and S2, no murmurs appreciated, peripheral pulses normal and equal bilaterally ABDOMEN: Soft, epigastric/RUQ TTP w/o rebound or guarding, normoactive bowel sounds EXTREMITIES: Normal inspection, Normal range of motion, no edema. No clubbing or cyanosis NEUROLOGICAL: Cranial nerves II through XII grossly intact. Normal speech, no focal sensorimotor deficits SKIN: Warm, Diaphoretic 07/29/18 16:08 Procedures - Bedside Ultrasound Bedside Ultrasound: Gallbladder Remarks: POCUS RUQ US Indication: epigastric pain Gallbladder scanned in two planes. No wall thickening. No pericholecystic fluid, no stones, neg sonographic demarco' s CBD < 4mm (3.4mm) Impression: normal gallbladder 07/29/18 17:00 ED Treatment Course - LABORATORY CBC & Chemistry Diagram: 07/29/18 16:20 07/29/18 16:20 Medical Decision Making - Medical Decision Making Ddx: cannabinoid hyperemesis, opioid withdraw, gastritis/gastroenteritis, biliary dz ED Course Labs sent IVF Ofirmev, zofran, pepcid, maalox for symptomatic relief POCUS w/ normal gallbladder 07/29/18 16:53 Ativan 1mg IV once for symptomatic relief Lytes wnl No GERSON LFTs wnl Lipase wnl No leukocytosis No anemia 07/29/18 17:43 Pt expresses desire to go to detox 07/29/18 19:21 *DC/Admit/Observation/Transfer Diagnosis at time of Disposition: Opioid abuse Nausea & vomiting Qualifiers: Vomiting type: unspecified Vomiting Intractability: unspecified Qualified Code( s): R11.2 - Nausea with vomiting, unspecified - Discharge Dispostion Disposition: HOME Condition at time of disposition: Stable Decision to Admit order: No - Referrals Referrals: [facility] [place] [Provider Group] Patrice Lemon MD [Staff Physician] - - Patient Instructions Printed Discharge Instructions: DI for Vomiting -- Adult, DI for Opioid Addiction Additional Instructions: You were seen in the Emergency Department for evaluation of nausea and vomiting. Your labs were unremarkable. Review the handout provided at discharge. You should follow up with gastroenterology as well. Return to the Emergency Department if you are unable to tolerate food/liquid, have worsening pain, or any new/concerning symptoms. - Post Discharge Activity
[2018-07-29] MEDS ORDERED: ACETAMINOPHEN 1000 MG/100 ML VIAL (NON FORMULARY) IVPB ONE ×3 (16:21→22:27)
[2018-07-29] MEDS ORDERED: SODIUM CHLORIDE 0.9% 500 ML INFUS.BAG IV ONE ×2 (16:21→22:27)
[2018-07-29] MEDS ORDERED: ONDANSETRON 4 MG/2 ML VIAL IVPUSH ONE ×2 (16:21→22:27)
[2018-07-29] MEDS ORDERED: MAG HYDROX/AL HYDROX/SIMETH -MYLANTA- ORAL SUSPENSION PO ONE (16:22)
[2018-07-29] MEDS ORDERED: FAMOTIDINE 20 MG/50 ML IVPB 20 MG/50 ML MG IVPB ONE ×2 (16:22→16:27)
[2018-07-29] MEDS ORDERED: ACETAMINOPHEN INJECTION 100 ML IVPB ONE ×2 (16:26→22:30)
[2018-07-29] MEDS ORDERED: MAG HYDROX/AL HYDROX/SIMETH 30 ML UNIT-DOSE CUP ONE (16:27)
[2018-07-29] MEDS ORDERED: ONDANSETRON 4 MG/2 ML VIAL ONE ×2 (16:27→22:30)
[2018-07-29 16:34] LABS: BASO % 0.2 % (0-2.0); HEMATOCRIT 48.5 % (35.4-49); HEMOGLOBIN 16.3 GM/dL (11.7-16.9); LYMPH % 5.8 % (8-40); MCH 32.8 pg (25.7-33.7); MCHC 33.7 g/dl (32.0-35.9); MEAN CELL VOLUME 97.5 fl (80-96); MEAN PLT VOLUME 7.2 fl (7.5-11.1); MONO % 3.5 % (3.8-10.2); NEUT % 90.5 % (42.8-82.8); PLATELET COUNT 225 K/MM3 (134-434); RBC 4.98 M/mm3 (4.00-5.60); WHITE BLOOD COUNT 12.2 K/mm3 (4.0-10.0)
--- NOTE | 2018-07-29 16:57 | PDOC ---
Attending Attestation - Resident Resident Name: Laci Lopez - ED Attending Attestation I have performed the following: I have examined & evaluated the patient, The case was reviewed & discussed with the resident, I agree w/resident's findings & plan, Exceptions are as noted - HPI HPI: 07/29/18 16:53 22 yo male with/ ho gastritis, substance abuse ( THC, narcotics ) here with n/ v. started early am. mulitple episodes of vomiting, all nonbloody. abd pain epigastric, periumbilical, loose watery stool. no f/ does c/o chills. no sick contacts. no h/o abd surgeries. states last use of THC was yesterday, uses every other day, and did use narcotics recently. - Physicial Exam PE: 07/29/18 16:55 awake alert lungs clear bilaterally heart rrr no mrg abd soft mild epigastric ttp. no rebound no guarding. no cva tenderness. skin warm and diaphoretic. nuero alert oriented x 3. - Medical Decision Making 07/29/18 16:56 diferential gatritis, hypokalemia, pancreatitis, opiate withdrawal, hyperemesis from THC, plan labs ivf, antiemetics. reassess. 07/29/18 16:57 focused ED TTE ultrasound RUQ indication epigastric pain. gallbladder scanned in two planes. no wall thickening. no pericholecystic fluid, no stones, neg sonographic demarco' s CBD < 4mm (3.4mm) impression: normal gallbladder. 07/29/18 19:37 pt feels improved with ativan, antiemetics and ivf. would like to go to detox at [facility]. report called, dc to [facility]. 07/29/18 19:38 wbc 12 likley secondary to intractable vomiting. T bili midly elevated. normal gb. other LFT normal. recommend fu with GI for repeat bilirubin.
[2018-07-29 16:59] LABS: ALK PHOS 75 U/L (45-117); ANION GAP 9 MMOL/L (8-16); BILIRUBIN,TOTAL 1.3 mg/dL (0.2-1); BLOOD UREA NITROGEN 13 mg/dL (7-18); CALCIUM 9.5 mg/dL (8.5-10.1); CHLORIDE 104 mmol/L (98-107); CO2 27 mmol/L (21-32); CREATININE 1.2 mg/dL (0.55-1.3); GLUCOSE,RANDOM 137 mg/dL (74-106); LIPASE 145 U/L (73-393); POTASSIUM 3.9 mmol/L (3.5-5.1); SGOT/AST 14 U/L (15-37); SGPT/ALT 22 U/L (13-61); SODIUM 140 mmol/L (136-145); TOT PROT 8.2 g/dl (6.4-8.2)
[2018-07-29] MEDS ORDERED: LORazepam 2 MG/ML SDV VIAL ONE (17:46)
[2018-07-29 18:45] LABS: PH,URINE 6.5 (5.0-8.0); URINE APPEARANCE CLEAR; URINE BILIRUBIN NEGATIVE (NEGATIVE); URINE COLOR YELLOW; URINE GLUCOSE (UA) NEGATIVE (NEGATIVE); URINE KETONE 1+ (NEGATIVE); URINE LEUK ESTERASE NEGATIVE (NEGATIVE); URINE NITRITE NEGATIVE (NEGATIVE); URINE PROTEIN NEGATIVE (NEGATIVE)
[2018-07-29 18:50] LABS: COCAINE, UR NEGATIVE ng/ml (CUTOFF=300); METHADONE, UR NEGATIVE ng/ml (CUTOFF=300); OPIATES, URI NEGATIVE ng/ml (CUTOFF=300); PHENCYCLIDINE,URINE NEGATIVE ng/ml (CUTOFF=25); URINE AMPHETAMINES NEGATIVE ng/ml (CUTOFF=500); URINE BARBITURATES NEGATIVE ng/ml (CUTOFF=200); URINE BENZODIAZEPINES NEGATIVE ng/ml (CUTOFF=200)
[2018-07-29] MEDS ORDERED: METOCLOPRAMIDE HCL INJECTION 10 MG/2 ML VIAL IVPUSH ONE (19:04)
[2018-07-29] MEDS ORDERED: METOCLOPRAMIDE HCL INJECTION 10 MG/2 ML VIAL ONE (19:10)
[2018-07-29] MEDS ORDERED: KETOROLAC TROMETHAMINE 30 MG/1 ML VIAL IVPUSH ONE (19:39)
[2018-07-29] MEDS ORDERED: KETOROLAC TROMETHAMINE 30 MG/1 ML VIAL ONE (19:40)
[2018-07-29 20:07] VITALS: BP 107/96; PULSE 58
== END 2018-07-29 23:35 | disposition home or self-care (01) ==
LOC: JER 15:28
PROC: 3E033GC Introduction of Other Therapeutic Substance into Peripheral Vein, Percutaneous Approach (ICD-10-PCS; principal; 2018-07-29)
PROC: 3E033GC Introduction of Other Therapeutic Substance into Peripheral Vein, Percutaneous Approach (ICD-10-PCS; 2018-07-29)
PROC: 3E033GC Introduction of Other Therapeutic Substance into Peripheral Vein, Percutaneous Approach (ICD-10-PCS; 2018-07-29)
PROC: 3E033GC Introduction of Other Therapeutic Substance into Peripheral Vein, Percutaneous Approach (ICD-10-PCS; 2018-07-29)
PROC: 3E033NZ Introduction of Analgesics, Hypnotics, Sedatives into Peripheral Vein, Percutaneous Approach (ICD-10-PCS; 2018-07-29)
PROC: 3E0333Z Introduction of Anti-inflammatory into Peripheral Vein, Percutaneous Approach (ICD-10-PCS; 2018-07-29)
PROC: 3E0333Z Introduction of Anti-inflammatory into Peripheral Vein, Percutaneous Approach (ICD-10-PCS; 2018-07-29)
DX: F11.10 Opioid abuse, uncomplicated (principal); R11.2 Nausea with vomiting, unspecified
CPT/HCPCS: 36415; 74177-TC; 80053; 80307; 81003; 83690; 85025; 96365; 96375; 99284-25; J0131

== ENCOUNTER 2018-07-29 23:45 | Inpatient (IN) | payer OTHER ==
[2018-07-30 00:03] VITALS: BMI 24.3
--- NOTE | 2018-07-30 00:12 | HP ---
COWS - Scale Resting Pulse: 0= NH 80 or Below Sweatin= Beads of Sweat on Face Restless Observation: 5= Unable to Sit Still Pupil Size: 1= Pupils >than Normal Bone or Joint Aches: 4=Acute Joint/Muscle Pain Runny Nose/ Eye Tearin= Nasal Congestion GI Upset > 30mins: 3= Vomiting/Diarrhea Tremor Observation: 2= Slight Tremor Visible Yawning Observation: 1= 1-2x During Session Anxiety or Irritability: 4=Extreme Anxiety Goose Flesh Skin: 0=Smooth Skin COWS Score: 24 CIWA Score - Admission Criteria [facility]AS Guidelines: Admission for Medically Managed Detox: Requires at least one of the followin. CIWA greater than 12 2. Seizures within the past 24 hours 3. Delirium tremens within the past 24 hours 4. Hallucinations within the past 24 hours 5. Acute intervention needed for co occurring medical disorder 6. Acute intervention needed for co occurring psychiatric disorder 7. Severe withdrawal that cannot be handled at a lower level of care (continued vomiting, continued diarrhea, abnormal vital signs) requiring intravenous medication and/or fluids 8. Admission ROS [facility] - HPI Chief Complaint: C/O WITHDRAWAL SX'S. SEEKING DETOX Allergies/Adverse Reactions: Allergies Allergy/AdvReac Type Severity Reaction Status Date / Time No Known Allergies Allergy Verified 07/30/18 00:03 History of Present Illness: 22 Y.O. MALE WITH OPIATE ABUSE HERE FOR DETOX. CLIENT IS REFERRED BY [facility] AFTER BEING CLEARED FOR ABD PAIN. CLIENT PRESENTS WITH C/O WITHDRAWAL SX'S. COWS 26. REPORTS USING OXY'S DAILY. LAST USE 2 DAYS AGO. HE ALSO USES CANNABIS. DENIES ANY SIGNIFICANT PERIOD OF CLEAN TIME. THIS IS HIS FIRST ATTEMPT AT INAPTIENT DETOX. DENIES DRUG OVERDOSE, SEIZURE D/O, SI/HI/AVH. DOMICILED, EMPLOYED- DELIVERY, DENIES LEGALS. - HPI HPI: 07/29/18 16:53 22 yo male with/ ho gastritis, substance abuse ( THC, narcotics ) here with n/ v. started early am. mulitple episodes of vomiting, all nonbloody. abd pain epigastric, periumbilical, loose watery stool. no f/ does c/o chills. no sick contacts. no h/o abd surgeries. states last use of THC was yesterday, uses every other day, and did use narcotics recently. - Physicial Exam PE: 07/29/18 16:55 awake alert lungs clear bilaterally heart rrr no mrg abd soft mild epigastric ttp. no rebound no guarding. no cva tenderness. skin warm and diaphoretic. nuero alert oriented x 3. - Medical Decision Making 07/29/18 16:56 diferential gatritis, hypokalemia, pancreatitis, opiate withdrawal, hyperemesis from THC, plan labs ivf, antiemetics. reassess. 07/29/18 16:57 focused ED TTE ultrasound RUQ indication epigastric pain. gallbladder scanned in two planes. no wall thickening. no pericholecystic fluid, no stones, neg sonographic demarco' s CBD < 4mm (3.4mm) impression: normal gallbladder. 07/29/18 19:37 pt feels improved with ativan, antiemetics and ivf. would like to go to detox at [facility]. report called, dc to [facility]. 07/29/18 19:38 wbc 12 likley secondary to intractable vomiting. T bili midly elevated. normal gb. other LFT normal. recommend fu with GI for repeat bilirubin. Exam Limitations: No Limitations - Ebola screening Have you traveled outside of the country in the last 21 days: No (N) Have you had contact with anyone from an Ebola affected area: No Do you have a fever: No - Review of Systems Constitutional: Chills, Loss of Appetite, Malaise, Night Sweats, Changes in sleep EENT: reports: Nose Congestion Respiratory: reports: Shortness of Breath Cardiac: reports: No Symptoms Reported GI: reports: Nausea, Poor Appetite, Poor Fluid Intake, Vomiting, Abdominal cramping : reports: No Symptoms Reported Musculoskeletal: reports: Back Pain, Joint Pain Integumentary: reports: Sweating Neuro: reports: Numbness, Weakness Endocrine: reports: No Symptoms Reported Hematology: reports: No Symptoms Reported Psychiatric: reports: Orientated x3, Agitated (IRRITABLE), Anxious Other Systems: Reviewed and Negative Patient History - Patient Medical History Hx Anemia: No Hx Asthma: No Hx Chronic Obstructive Pulmonary Disease (COPD): No Hx Cancer: No Hx Cardiac Disorders: No Hx Congestive Heart Failure: No Hx Hypertension: No Hx Hypercholesterolemia: No Hx Pacemaker: No HX Cerebrovascular Accident: No Hx Seizures: No Hx Dementia: No Hx Diabetes: No Hx Gastrointestinal Disorders: Yes (GASTRITIS.) Hx Liver Disease: No Hx Genitourinary Disorders: No Hx Renal Disease (ESRD): No Hx Thyroid Disease: No Hx Human Immunodeficiency Virus (HIV): No Hx Hepatitis C: No Hx Depression: No Hx Suicide Attempt: No Hx Bipolar Disorder: No Hx Schizophrenia: No Other Medical History: DENIES - Patient Surgical History Past Surgical History: No Hx Neurologic Surgery: No Hx Cataract Extraction: No Hx Cardiac Surgery: No Hx Lung Surgery: No Hx Breast Surgery: No Hx Breast Biopsy: No Hx Abdominal Surgery: No Hx Appendectomy: No Hx Cholecystectomy: No Hx Genitourinary Surgery: No Hx Section: No Hx Orthopedic Surgery: No Hx Hysterectomy: No Anesthesia Reaction: No - PPD History Previous Implant?: Yes Documented Results: Negative w/o proof Implanted On Prior [facility] Admission?: No PPD to be Administered?: Yes - Smoking Cessation Smoking history: Current every day smoker Have you smoked in the past 12 months: Yes Aproximately how many cigarettes per day: 6 Cigars Per Day: 0 Hx Chewing Tobacco Use: No Initiated information on smoking cessation: Yes 'Breaking Loose' booklet given: 07/30/18 - Substance & Tx. History Hx Alcohol Use: Yes Hx Substance Use: Yes Substance Use Type: Marijuana, Opiates Hx Substance Use Treatment: No - Substances abused Other Other (specify): percocet Substance route: Oral Frequency: Daily Amount used: 2 /10mg Age of first use: 20 Date of last use: 07/27/18 Marijuana/Hashish Substance route: Smoking Frequency: Daily Amount used: 2 blunts Age of first use: 15 Date of last use: 07/28/18 Family Disease History - Family Disease History Family History: Denies Admission Physical Exam S - Vital Signs Vital Signs: Vital Signs - 24 hr 07/29/18 23:54 Temperature 98.2 F Pulse Rate 78 Respiratory 18 Rate Blood Pressure 140/78 - Physical General Appearance: Yes: Moderate Distress, Tremorous, Irritable, Sweating, Anxious, Other (DRY HEAVING) HEENTM: Yes: EOMI, Normocephalic, Normal Voice, JORDYN, Pharynx Normal Respiratory: Yes: Chest Non-Tender, Lungs Clear, Normal Breath Sounds, No Respiratory Distress, No Accessory Muscle Use Neck: Yes: No masses,lesions,Nodules, Supple, Trachea in good position Breast: Yes: Breast Exam Deferred Cardiology: Yes: Regular Rhythm, S1, S2, Tachycardia Abdominal: Yes: Normal Bowel Sounds, Non Tender, Soft, Increased Bowel Sounds Genitourinary: Yes: Within Normal Limits Back: Yes: Normal Inspection Musculoskeletal: Yes: Gait Steady Extremities: Yes: Normal Capillary Refill, Normal Range of Motion, Non-Tender, Tremors Neurological: Yes: Fully Oriented, Alert, Motor Strength 5/5 Integumentary: Yes: Warm, Moist Lymphatic: Yes: Within Normal Limits - Diagnostic (1) Opioid dependence with withdrawal Current Visit: Yes Status: Acute (2) Cannabis abuse, uncomplicated Current Visit: Yes Status: Acute (3) Nicotine dependence Current Visit: Yes Status: Chronic Qualifiers: Nicotine product type: cigarettes Substance use status: uncomplicated Qualified Code(s): F17.210 - Nicotine dependence, cigarettes, uncomplicated (4) At risk for dehydration due to poor fluid intake Current Visit: Yes Status: Acute (5) Nausea & vomiting Current Visit: Yes Status: Acute Qualifiers: Vomiting type: unspecified Vomiting Intractability: unspecified Qualified Code(s): R11.2 - Nausea with vomiting, unspecified (6) Upper abdominal pain, unspecified Current Visit: Yes Status: Acute (7) Intractable nausea and vomiting Current Visit: Yes Status: Acute Qualifiers: Vomiting type: unspecified Qualified Code(s): R11.2 - Nausea with vomiting , unspecified Comment: 20 y/o m pt with daily marijuana use having vomiting and abdominal pain would consider CVS-cyclical vomiting syndrome in differential , which is seen in young males who smoke marijuana regularly . discontinuing marijuana use discussed with pt and he appears ameneable to stopping - he stated the GI also discussed d/c-ing marijuana use. Cleared for Admission S - Detox or Rehab [facility] Level of Care: Medically Managed Detox Regimen/Protocol: Methadone Claeared for Rehab Admission: No Breathalyzer - Breathalyzer Breathalyzer: 0 Urine Drug Screen - Test Device Lot number: [id number] Expiration date: 02/25/20 - Control Is test valid?: Yes - Results Drug screen NEGATIVE: No Urine drug screen results: THC-Marijuana, OXY-Oxycodone, BZO-Benzodiazepines Inpatient Rehab Admission - Rehab Decision to Admit Inpatient rehab admission?: No
[2018-07-30] MEDS ORDERED: NALOXONE HCL 0.4 MG/ML VIAL IVPUSH PRN (00:16)
[2018-07-30] MEDS ORDERED: MAGNESIUM HYDROX 2400MG/30ML ORAL SUSPENSION 30 ML CUP PO PRN (00:16)
[2018-07-30] MEDS ORDERED: clonazePAM 0.5 MG TABLET PO PRN (00:16)
[2018-07-30] MEDS ORDERED: MAGNESIUM CITRATE 300 ML BOTTLE PO PRN (00:16)
[2018-07-30] MEDS ORDERED: P-EPHED 60MG/TRIPROLIDI 2.5MG TABLET PO PRN (00:16)
[2018-07-30] MEDS ORDERED: MELATONIN 5 MG TABLETS PO PRN (00:16)
[2018-07-30] MEDS ORDERED: cloNIDine HCL 0.1 MG TABLET PO PRN (00:16)
[2018-07-30] MEDS ORDERED: MAG HYDROX/AL HYDROX/SIMETH 30 ML UNIT-DOSE CUP PO PRN (00:16)
[2018-07-30] MEDS ORDERED: IBUPROFEN 400 MG TABLET (FP) PO PRN ×2 (00:16)
[2018-07-30] MEDS ORDERED: NICOTINE POLACRILEX 2 MG GUM BUC PRN (00:16)
[2018-07-30] MEDS ORDERED: ACETAMINOPHEN 325 MG TABLET (FP) PO PRN ×2 (00:16)
[2018-07-30] MEDS ORDERED: BISMUTH SUBSALICYLATE 524 MG/30 ML UD PO PRN (00:16)
[2018-07-30] MEDS ORDERED: MENTHOL/PHENOL 1 EACH UD MM PRN (00:16)
[2018-07-30] MEDS ORDERED: guaiFENesin 200 MG/10 ML 10 ML UNIT-DOSE CUPS PO PRN (00:16)
[2018-07-30] MEDS ORDERED: METHOCARBAMOL 500 MG TABLET PO PRN (00:16)
[2018-07-30] MEDS ORDERED: TRIMETHOBENZAMIDE HCL 200MG/2ML INJ IM PRN (00:20)
[2018-07-30] MEDS ORDERED: METHADONE HCL 10 MG TABLET (FOR DETOX USE ONLY) PO ONE ×3 (00:30→23:00)
[2018-07-30] MEDS ORDERED: PANTOPRAZOLE 20 MG TABLET (FP) PO ONE (00:36)
[2018-07-30] MEDS: DICYCLOMINE HCL 10 MG CAPSULE PO PRN ×2 (01:38→15:44)
--- NOTE | 2018-07-30 08:53 | EKG ---
Test Reason : Blood Pressure : / mmHG Vent. Rate : 056 BPM Atrial Rate : 056 BPM P-R Int : 148 ms QRS Dur : 088 ms QT Int : 424 ms P-R-T Axes : 062 067 054 degrees QTc Int : 409 ms SINUS BRADYCARDIA WITH PREMATURE ATRIAL COMPLEXES WITH ABERRANT CONDUCTION OTHERWISE NORMAL ECG WHEN COMPARED WITH ECG OF 25-JUL-2016 20:54, NO SIGNIFICANT CHANGE WAS FOUND Confirmed by FRANNIE FARRELL, ROSA ([id number]) on 07/30/2018 8:52:48 AM Referred By: THERESA Confirmed By:ROSA KATHLEEN MD
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
[2018-07-30] MEDS ORDERED: PRENATAL VITAMINS W/ FOLIC ACID TABLET (FP) PO SCH (10:00)
[2018-07-30] MEDS ORDERED: NICOTINE 14 MG/24 HOURS TOPICAL PATCH TD SCH (10:00)
[2018-07-30] MEDS ORDERED: PANTOPRAZOLE 20 MG TABLET (FP) PO SCH (10:00)
[2018-07-30 10:51] LABS: HEMOGLOBIN 14.3 GM/dL (11.7-16.9); MCH 33.1 pg (25.7-33.7); MCHC 34.1 g/dl (32.0-35.9); MEAN CELL VOLUME 97.3 fl (80-96); MEAN PLT VOLUME 7.5 fl (7.5-11.1); PLATELET COUNT 201 K/MM3 (134-434); RBC 4.31 M/mm3 (4.00-5.60); RDW 13.1 % (11.9-15.9); WHITE BLOOD COUNT 11.9 K/mm3 (4.0-10.0)
[2018-07-30 11:29] LABS: ALBUMIN 4.2 g/dl (3.4-5.0); ALK PHOS 63 U/L (45-117); ANION GAP 7 MMOL/L (8-16); BILIRUBIN,TOTAL 1.4 mg/dL (0.2-1); BLOOD UREA NITROGEN 15 mg/dL (7-18); CALCIUM 9.4 mg/dL (8.5-10.1); CHLORIDE 108 mmol/L (98-107); CO2 25 mmol/L (21-32); CREATININE 0.9 mg/dL (0.55-1.3); GLUCOSE,RANDOM 105 mg/dL (74-106); POTASSIUM 3.9 mmol/L (3.5-5.1); SGOT/AST 15 U/L (15-37); SGPT/ALT 21 U/L (13-61); SODIUM 140 mmol/L (136-145)
[2018-07-30] MEDS ORDERED: PNEUMOCOCCAL 23 VACCINE 0.5 ML VIAL IM ONE (11:45)
[2018-07-30] MEDS ORDERED: PNEUMOC 13-VAL CONJ-DIP CRM/PF 0.5 ML DISP.SYRIN IM ONE (12:00)
[2018-07-30] MEDS ORDERED: FLU VACCINE QUAD 60 MCG/0.5 ML (MDV 18-19) IM ONE (12:00)
--- NOTE | 2018-07-30 15:58 | PDOC ---
Patient Follow-up (Call Back) - Post ED Follow - Up Reason for Call Back: Radiology (Phone call from radiologist in regards was CT performed yesterday which showed a small amount of free air between the margin of both lower lobe suggestive of a tiny pneumothorax with air seen tracking around the junction of the descending thoracic aorta he is recommending a surgical consult and possible repeat CT. Patient discussed with nurse abdomen [facility] and is aware findings and so will be sending patient back to the ER)
--- NOTE | 2018-07-30 16:17 | PN ---
S COWS - Scale Resting Pulse: 0= FL 80 or Below Sweatin= Chills/Flushing Restless Observation: 3= Extraneous Movement Pupil Size: 0= Normal to Room Light Bone or Joint Aches: 2= Severe Diffuse Aches Runny Nose/ Eye Tearin= Runny Nose/Eyes GI Upset > 30mins: 3= Vomiting/Diarrhea Tremor Observation of Outstretched Hands: 0= None Yawning Observation: 0= None Anxiety or Irritability: 2=Irritable/Anxious Goose Flesh Skin: 0=Smooth Skin COWS Score: 13 S Progress Note (SOAP) Subjective: Stomach cramps, sweating, diarrhea. As per assigned RN, medical provider Dr. Lake called from [facility] regarding abnormal CT Scan of abdomen showing air in abdomen and wants patient to return to ER for further workup/ surgical consult. Blowing Weasand notified medical provider, Jess to sign out to oncoming medical provider for patient to transfer to [facility] today. Objective: 07/30/18 16:17 Last Vital Signs Temp Pulse Resp BP Pulse Ox 97.5 F L 62 18 106/62 07/30/18 14:06 07/30/18 14:06 07/30/18 14:06 07/30/18 14:06 Laboratory Tests 07/30/18 07/30/18 07/30/18 07:50 07:50 07:50 WBC 11.9 H RBC 4.31 Hgb 14.3 Hct 42.0 MCV 97.3 H MCH 33.1 MCHC 34.1 RDW 13.1 Plt Count 201 MPV 7.5 Sodium 140 Potassium 3.9 Chloride 108 H Carbon Dioxide 25 Anion Gap 7 L BUN 15 Creatinine 0.9 Creat Clearance w eGFR 104.57 Random Glucose 105 Calcium 9.4 Total Bilirubin 1.4 H AST 15 ALT 21 Alkaline Phosphatase 63 Total Protein 7.0 Albumin 4.2 RPR Titer Nonreactive Labs reviewed: wbc 11.9, total bilirubin 1.4 Assessment: 07/30/18 16:18 Withdrawal symptoms Noted with leukocytosis and elevated total bilirubin Plan: Continue detox Encouraged PO water hydration Leukocytosis: repeat CBC in AM (patient will be at [facility] so it can be done there) Elevated total bilirubin: (repeat total bilirubin in AM, can be done at [facility]) Patient presently on NPO status as he will be transferred to [facility] for further evaluation due to abnormal CT Scan of abdomen.
[2018-07-30 17:31] VITALS: BP 149/76; PULSE 77; TEMP 98.1
--- NOTE | 2018-07-30 17:32 | PN ---
[facility] Progress Note Note: Received TC from JÚNIOR Varela that pt was recalled for abnormal CT result. Report given by this conventional mortgage underwriter to Dr Lopez at [facility]. Pt will be sent back for repeat CT or surgical consult, same conveyed to JÚNIOR Lund
[2018-07-30] MEDS ORDERED: THIAMINE HCL 100 MG TABLET (FP) PO SCH (22:00)
[2018-07-31] MEDS ORDERED: METHADONE HCL 5 MG TABLET (FOR DETOX USE ONLY) PO ONE (10:00)
[2018-08-01] MEDS ORDERED: METHADONE HCL 10 MG TABLET (FOR DETOX USE ONLY) PO ONE (10:00)
[2018-08-02] MEDS ORDERED: METHADONE HCL 5 MG TABLET (FOR DETOX USE ONLY) PO ONE (06:00)
== END 2018-07-30 23:50 | disposition short-term general hospital (02) | DRG 773 ==
LOC: YASAS 23:45 → Y6N 07-30 00:10
PROVIDERS: ADMIT Surgery; ATTEND Surgery
PROC: HZ2ZZZZ Detoxification Services for Substance Abuse Treatment (ICD-10-PCS; principal; 2018-07-30)
DX: F11.23 Opioid dependence with withdrawal (principal); F12.20 Cannabis dependence, uncomplicated; F17.210 Nicotine dependence, cigarettes, uncomplicated; F19.24 Other psychoactive substance dependence with psychoactive substance-induced mood disorder; D72.829 Elevated white blood cell count, unspecified; E80.7 Disorder of bilirubin metabolism, unspecified; K29.70 Gastritis, unspecified, without bleeding; R00.0 Tachycardia, unspecified; R63.8 Other symptoms and signs concerning food and fluid intake; R11.2 Nausea with vomiting, unspecified; R10.9 Unspecified abdominal pain
CPT/HCPCS: 36415; 74177-TC; 80053; 80307; 81003; 83690; 85025; 85027; 86593; 90732; 93005; 93010; 96365; 96375; 99284-25; G0009; J0131; J0735

== ENCOUNTER 2018-07-30 17:57 | Emergency (ER) | payer OTHER ==
--- NOTE | 2018-07-30 18:06 | PDOC ---
History of Present Illness - General Chief Complaint: Pain Stated Complaint: STOMACH PAIN Time Seen by Provider: 07/30/18 18:06 - History of Present Illness Initial Comments: 22yo M with PMH of substance abuse (THC and opioids) sent back to this ED for evaluation of "tiny pneumothorax" seen on CT abdomen/pelvic on 07/29/18. Patient presented to detox yesterday after discharge and has no acute complaints. He states he has had chronic abdominal pain, nausea, vomiting x 2 years and has been evaluated by eight different hospitals that "never find anything." Patient reports small episode of bilious vomiting this morning which was alleviated by a 'blue pill' he was given by detox staff. No history of any surgeries. Denies personal or family history of pneumothorax. No fevers, chills, chest pain, or shortness of breath. PCP: none Past History - Past Medical History Allergies/Adverse Reactions: Allergies Allergy/AdvReac Type Severity Reaction Status Date / Time No Known Allergies Allergy Verified 07/30/18 18:07 Home Medications: Ambulatory Orders NK [No Known Home Medication] 07/29/18 Anemia: No Asthma: No Cancer: No Cardiac Disorders: No CVA: No COPD: No CHF: No DVT: No Dementia: No Diabetes: No GI Disorders: Yes (GASTRITIS.) Disorders: No HTN: No Hypercholesterolemia: No Liver Disease: No Seizures: No Thyroid Disease: No - Surgical History Abdominal Surgery: No Appendectomy: No Cardiac Surgery: No Cholecystectomy: No Lung Surgery: No Neurologic Surgery: No Orthopedic Surgery: No - Reproductive History Testicular Surgery: No - Immunization History Immunization Up to Date: No - Suicide/Smoking/Psychosocial Hx Smoking History: Current some day smoker Have you smoked in the past 12 months: Yes Number of Cigarettes Smoked Daily: 6 Cigars Per Day: 0 Information on smoking cessation initiated: Yes 'Breaking Loose' booklet given: 07/30/18 Hx Alcohol Use: Yes Drug/Substance Use Hx: Yes Substance Use Type: Marijuana, Opiates Hx Substance Use Treatment: No Review of Systems - Review of Systems Comments:: Constitutional: no fever, no chills HEENT: no throat pain, no dysphagia Cardiovascular: no chest pain, no palpitations Respiratory: no cough, no shortness of breath Gastrointestinal: +abdominal pain, +nausea Genitourinary: no dysuria, no frequency Musculoskeletal: no myalgia, no arthralgia Skin: no rash, no itching Neurologic: no headache, no weakness *Physical Exam - Vital Signs Last Vital Signs Temp Pulse Resp BP Pulse Ox 97.7 F 83 20 115/75 100 07/30/18 18:04 07/30/18 18:04 07/30/18 18:04 07/30/18 18:04 07/30/18 18:04 - Physical Exam Comments: General: Awake, alert, and fully oriented, in no acute distress Head: No signs of trauma Eyes: EOMI, sclera anicteric ENT: Moist mucus membranes Neck: Normal ROM, supple Lungs: Lungs clear, Normal breath sounds Cardio: Regular rhythm, S1 and S2 present Abdomen: Minor tenderness to palpation in epigastrium. Soft, nondistended. No guarding, no rebound, no masses Extremities: Normal range of motion, Distal pulses present SKIN: Warm, Dry, normal turgor Neurologic: Cranial nerves II through XII grossly intact. Normal speech Medical Decision Making - Medical Decision Making 22yo M with PMH of substance abuse (THC and opioids) sent back to this ED for evaluation of "tiny pneumothorax" seen on CT abdomen/pelvic on 07/29/18. DDX including but not limited to pneumothorax due to punctured lung, rib fracture, ruptured bleb, booerhaave's, idiopathic Chest PA/Lat ordered Plan to consult pulmonology 07/30/18 18:38 Patient reporting nausea; maggiean odt ordered Discussed case with Dr. Simental who recommended supplemental O2. As the patient is reliable for follow-up given his inpatient detox status, will plan for repeat imaging in two days. 07/30/18 19:17 Dr. Simental called back and recommended CT Chest. Ordered. 07/30/18 19:[address] scan regarding the air seen in the imaging extends upward. Ordered Neck CT to assess for the furthest extent of the air. 07/30/18 20:02 Patient with improvement in nausea. He states he is not returning to [facility]: "I was told I no longer need to be there." In the scenario he is discharged, patient states he would be able to return for follow-up: "I live close to here" Pending CT report. 07/30/18 20:57 CT Chest: "Findings: *Moderate pneumomediastinum extending into the soft tissue neck, along the diaphragm, and retroperitoneum. Trace gas in the left major fissure. Calcified mediastinal lymph nodes from prior granulomatous disease. Mild to moderate soft tissue gas in the chest wall bilaterally, right greater than left. No focal consolidation, pleural effusion, or pneumothorax. No acute fracture visualized." Consult to surgery Patient without crepitus 07/30/18 21:32 CT Neck: "COMPARISON: None Findings: Moderate pneumomediastinum extending into the soft tissue neck and thoracic wall. Some of the gas gas does slightly extend into the pleural space at the lung apices but this is not really a pneumothorax as the lung is not or partially collapsed. Parotid glands, submandibular glands, and thyroid gland are grossly unremarkable No visible fracture. Larynx and epiglottis are within normal limits." 07/30/18 21:[address] Jimenez who recommended consultation with a thoracic surgeon. 07/30/18 22:[address] Meng who recommended CT of the neck/chest/abdomen with oral contrast only. If the study shows no extravasation, the patient can be discharged home. 07/30/18 22:[address] Shaw Murillo from Imaging business continuity director ([id number]) with question of timing of oral contrast. He says that the patient can drink some contrast before sitting on the CT table. Then, the patient can get on the table and drink some more contrast. The patient will then lay down and the image will be taken. 07/30/18 22:57 Patient not present in stretcher 07/30/18 23:07 Patient not present in stretcher, waiting room, or any other areas of the department. He has not been seen by any other staff. No belongings are present on the stretcher. Patient eloped 07/30/18 23:35 07/30/18 23:39 *DC/Admit/Observation/Transfer Diagnosis at time of Disposition: Pneumomediastinum, Eloped from emergency department - Discharge Dispostion Disposition: ELOPED Condition at time of disposition: Stable - Referrals Referrals: [facility] [place] [facility] [place] [Provider Group] Patrice Lemon MD [Staff Physician] - Nemo Rodriguez MD [Staff Physician] - - Patient Instructions - Post Discharge Activity
[2018-07-30 18:07] VITALS: BP 156/94; PULSE 95; TEMP 98.8; BMI 27.7
[2018-07-30] MEDS ORDERED: ONDANSETRON *ODT* 4 MG TABLET SL ONE (19:27)
[2018-07-30] MEDS ORDERED: ONDANSETRON *ODT* 4 MG TABLET ONE (19:34)
--- NOTE | 2018-07-31 01:30 | PDOC ---
Documentation entered by Paula Hobbs SCRIBE, acting as scribe for Janice Lopez MD. Janice Lopez MD: This documentation has been prepared by the Anjel bhatia Daisy, SCRIBE, under my direction and personally reviewed by me in its entirety. I confirm that the documentation accurately reflects all work, treatment, procedures, and medical decision making performed by me. Attending Attestation - Resident Resident Name: Danielle Son - ED Attending Attestation I have performed the following: I have examined & evaluated the patient, The case was reviewed & discussed with the resident, I agree w/resident's findings & plan - HPI HPI: 07/30/18 18:25 22-year-old male who was admitted to [facility] detox and treatment for substance abuse and has had nausea, vomiting and has had multiple episodes of vomiting, all nonbloody. There is a loose watery stool. No fever or chills. No sick contacts. No history of abdominal surgeries. Last used THC yesterday. He reports using Oxycet daily, last used 2 days ago. He does use cannabis. This is his first inpatient detox. He denies any seizure history. He is domiciled and employed He had a CAT scan that showed a small amount of free air, between the inferior medial margin of both lower lower lobes suggestive of a tiny, with some air tracking around the junction of the descending aortic thoracic aorta. The mid- level provider called [facility] to make them aware of this CAT scan finding and the patient was sent back for reevaluation . He denies any symptomatology. he is not tachypneic, is not hypoxic. He does not have any shortness of breath 07/30/18 18:29 - Physicial Exam PE: 07/30/18 19:50 slender tall 22 yo male who is admitted at [facility] for daily oxycodone abuse -he also has heavy THC use and has h/o gastritis plan will repeat ct chest to eval tiny pneumothorax 07/30/18 22:06 wnwd 22 yo male in no acute distress head ncat neck supple,no crepitus lungs cta b/l cvs [id number] abd nontender ext no edema skin warm and dry no cva tenderness neuro axox3,ambulatory psych appropriate - Medical Decision Making 07/30/18 21:40 CAT scan chest without contrast reveals moderate pneumomediastinum extending into the soft tissue neck along the diaphragm and retroperitoneum. Trace gas in the left major fissure. Calcified mediastinal lymph nodes from prior granulomatous disease. [id number] soft tissue gas in the chest wall bilaterally, right greater than left. No focal consolidation, no pleural effusion, no pneumothorax. No acute fracture 07/30/18 22:09 CAT scan of the abdomen shows moderate pneumomediastinum extending into the soft tissue and neck and thoracic wall Some of is a extend into the pleural space at the lung apices but this is not a pneumothorax as the lung is not or partially collapsed We spoke with Dr Meng and he recommenced doing the ct chest /abdomen with po contrast to ensure this pt does not have extrasvasation of constrast to rule out esophageal rupture 07/31/18 01:26 pt eloped
== END 2018-07-30 23:39 | disposition left against medical advice (07) ==
LOC: JER 17:57
DX: J98.2 Interstitial emphysema (principal); F14.10 Cocaine abuse, uncomplicated; F19.10 Other psychoactive substance abuse, uncomplicated; R11.2 Nausea with vomiting, unspecified; R10.84 Generalized abdominal pain; G89.29 Other chronic pain; F17.200 Nicotine dependence, unspecified, uncomplicated
CPT/HCPCS: 70490-TC; 71046-TC-FY; 71250-TC; 99282-25; Q0162

== ENCOUNTER 2020-05-18 15:03 | Emergency (ER) | payer OTHER ==
[2020-05-18 15:07] VITALS: BP 145/84; PULSE 65; TEMP 98; BMI 25.7
[2020-05-18] MEDS ORDERED: ONDANSETRON 4 MG/2 ML VIAL IVPUSH ONE ×2 (15:37→16:42)
[2020-05-18] MEDS ORDERED: SODIUM CHLORIDE 1,000 ML IV STA (15:41)
[2020-05-18] MEDS ORDERED: ONDANSETRON 4 MG/2 ML VIAL ONE ×3 (15:55→16:49)
[2020-05-18] MEDS ORDERED: ACETAMINOPHEN 1000 MG/100 ML VIAL (NON FORMULARY) IVPB ONE (15:56)
[2020-05-18] MEDS ORDERED: FAMOTIDINE 20 MG/50 ML IVPB 20 MG/50 ML MG IVPB ONE ×2 (15:56→15:59)
[2020-05-18] MEDS ORDERED: LACTATED RINGERS SOLUTION 1000 ML INFUS.BAG IV ONE ×2 (15:57→17:23)
[2020-05-18] MEDS ORDERED: LORazepam 2 MG/ML SDV VIAL IVPUSH ONE (15:57)
[2020-05-18] MEDS ORDERED: ACETAMINOPHEN INJECTION 100 ML IVPB ONE (15:59)
[2020-05-18] MEDS ORDERED: LORazepam 2 MG/ML SDV VIAL ONE (15:59)
[2020-05-18] MEDS ORDERED: SUCRALFATE 1 GM TABLET (FP) PO ONE (16:41)
[2020-05-18] MEDS ORDERED: SUCRALFATE 1 GM TABLET (FP) ONE (16:45)
[2020-05-18 16:50] LABS: BASO % 0.2 % (0-2.0); HEMOGLOBIN 15.7 GM/dL (11.7-16.9); MCH 32.8 pg (25.7-33.7); MCHC 34.1 g/dl (32.0-35.9); MEAN PLT VOLUME 7.9 fl (7.5-11.1); MONO % 4.4 % (3.8-10.2); NEUT % 88.4 % (42.8-82.8); PLATELET COUNT 222 K/MM3 (134-434); RBC 4.79 M/mm3 (4.00-5.60); RDW 12.5 % (11.9-15.9)
[2020-05-18 17:01] LABS: POTASSIUM 4.4 mmol/L (3.5-5.1)
[2020-05-18 17:03] LABS: CALCIUM 9.6 mg/dL (8.5-10.1)
[2020-05-18 17:05] LABS: ALBUMIN 4.9 g/dl (3.4-5.0); MAGNESIUM 2.1 mg/dL (1.8-2.4)
[2020-05-18 17:08] LABS: TOT PROT 8.2 g/dl (6.4-8.2)
[2020-05-18] MEDS ORDERED: HALOPERIDOL LACTATE 5 MG/ML IM ONE (17:24)
[2020-05-18] MEDS ORDERED: HALOPERIDOL LACTATE 5 MG/ML ONE (17:24)
[2020-05-18] MEDS ORDERED: morphine CARPU-JECT 4 MG/1 ML DISP.SYRIN IVPUSH ONE (18:07)
[2020-05-18] MEDS ORDERED: morphine SULFATE 4 MG/ML VIAL ONE (18:13)
== END 2020-05-18 21:49 | disposition left against medical advice (07) ==
LOC: JER 15:03
PROC: 3E0333Z Introduction of Anti-inflammatory into Peripheral Vein, Percutaneous Approach (ICD-10-PCS; principal; 2020-05-18)
PROC: 3E033GC Introduction of Other Therapeutic Substance into Peripheral Vein, Percutaneous Approach (ICD-10-PCS; 2020-05-18)
PROC: 3E023GC Introduction of Other Therapeutic Substance into Muscle, Percutaneous Approach (ICD-10-PCS; 2020-05-18)
PROC: 3E033NZ Introduction of Analgesics, Hypnotics, Sedatives into Peripheral Vein, Percutaneous Approach (ICD-10-PCS; 2020-05-18)
PROC: 3E033NZ Introduction of Analgesics, Hypnotics, Sedatives into Peripheral Vein, Percutaneous Approach (ICD-10-PCS; 2020-05-18)
PROC: 3E033GC Introduction of Other Therapeutic Substance into Peripheral Vein, Percutaneous Approach (ICD-10-PCS; 2020-05-18)
DX: R11.10 Vomiting, unspecified (principal)
CPT/HCPCS: 36415; 71045-TC-FY; 71250-TC; 74177-TC; 80053; 80307; 83605; 83690; 83735; 85025; 93005; 93010; 99285-25; J0131; Q9967

== ENCOUNTER 2021-05-01 11:02 | Emergency (ER) | payer OTHER ==
[2021-05-01 11:19] VITALS: BMI 25.0
[2021-05-01] MEDS ORDERED: DICYCLOMINE HCL 20 MG TABLET PO ONE (11:30)
[2021-05-01] MEDS ORDERED: PANTOPRAZOLE SODIUM 40 MG VIAL IVPB ONE (11:30)
[2021-05-01] MEDS ORDERED: ONDANSETRON 4 MG/2 ML VIAL IVPUSH ONE (11:30)
[2021-05-01] MEDS ORDERED: ACETAMINOPHEN 1000 MG/100 ML BAG IVPB ONE (11:30)
[2021-05-01] MEDS ORDERED: SODIUM CHLORIDE 1,000 ML IV STA (11:30)
[2021-05-01] MEDS ORDERED: LORazepam 2 MG/ML SDV VIAL IVPUSH ONE (11:34)
[2021-05-01] MEDS ORDERED: ONDANSETRON 4 MG/2 ML VIAL ONE (11:37)
[2021-05-01] MEDS ORDERED: PANTOPRAZOLE SODIUM 40 MG VIAL ONE (11:37)
[2021-05-01] MEDS ORDERED: DICYCLOMINE HCL 10 MG CAPSULE ONE (11:37)
[2021-05-01] MEDS ORDERED: ACETAMINOPHEN INJECTION 100 ML IVPB ONE (11:37)
[2021-05-01 12:18] LABS: BASO % 0.2 % (0-2.0); HEMATOCRIT 42.6 % (35.4-49); HEMOGLOBIN 14.9 GM/dL (11.7-16.9); MCH 33.1 pg (25.7-33.7); MCHC 34.9 g/dl (32.0-35.9); MEAN PLT VOLUME 6.9 fl (7.5-11.1); MONO % 2.7 % (3.8-10.2); NEUT % 90.1 % (42.8-82.8); PLATELET COUNT 212 10^3/uL (134-434); RBC 4.49 M/mm3 (4.00-5.60); RDW 12.5 % (11.9-15.9); WHITE BLOOD COUNT 6.4 K/mm3 (4.0-10.0)
[2021-05-01 12:27] LABS: INR 1.06 (0.83-1.09); PROTHROMBIN TIME (PATIENT) 12.2 SEC (9.7-13.0)
[2021-05-01 12:30] LABS: ACTIVATED PTT 25.1 SECONDS (25.2-36.5)
[2021-05-01 12:50] LABS: MAGNESIUM 2.3 mg/dL (1.8-2.4)
[2021-05-01 12:51] LABS: BLOOD UREA NITROGEN 10.6 mg/dL (7-18); CALCIUM 9.9 mg/dL (8.5-10.1)
[2021-05-01 12:54] LABS: PHOSPHOROUS 2.3 mg/dL (2.5-4.9)
[2021-05-01 12:55] LABS: TOT PROT 7.9 g/dl (6.4-8.2)
[2021-05-01 12:56] LABS: BILIRUBIN,TOTAL 0.7 mg/dL (0.2-1)
[2021-05-01] MEDS ORDERED: HALOPERIDOL LACTATE 5 MG/ML IM ONE (13:45)
[2021-05-01] MEDS ORDERED: HALOPERIDOL LACTATE 5 MG/ML ONE (13:49)
[2021-05-01 16:06] VITALS: BP 119/74; PULSE 70; TEMP 98.5
== END 2021-05-01 15:56 | disposition home or self-care (01) ==
LOC: JER 11:02
PROC: 3E033NZ Introduction of Analgesics, Hypnotics, Sedatives into Peripheral Vein, Percutaneous Approach (ICD-10-PCS; principal; 2021-05-01)
DX: F12.10 Cannabis abuse, uncomplicated (principal); R11.2 Nausea with vomiting, unspecified
CPT/HCPCS: 36415; 71046-TC-FY; 80053; 82550; 82553; 83690; 83735; 84100; 84484; 85025; 85610; 85730; 86850; 86900; 86901; 93005; 93010; 99284-25; J0131